=== PATIENT | male | born 1990 | race Caucasian/White ===

== ENCOUNTER 2018-01-02 12:30 | Emergency (ER) | payer OTHER, SELFPAY ==
[2018-01-02 12:33] VITALS: BP 155/74; PULSE 58; RESP 17; TEMP 36.6; O2SAT 99; BMI 34.9
--- NOTE | 2018-01-02 12:52 | ED.VISSUMM ---
- ER Visit Summary Date of Service: 01/02/18 Chief Complaint: Left hand lacerations to 4 of his fingers History of Present Illness: The patient is a 27 M [id number]. Unsure of his last tetanus shot. Patient states he was at work he grabbed a piece of metal and when he tried to pull it lacerated right through his leather glove his left index, long, ring and small fingers. On the palmar aspect. No other injuries. No numbness. Occurred within the last hour. This is a workers comp injury. Physical Examination: Appearing young male. Vital signs stable afebrile. No distress. H EENT exam unremarkable. Neck nontender. Lungs clear to auscultation. Heart regular rhythm no murmur. Soft nontender. Extremities moving all 4. Neurovascular intact. Left hand palmar aspect his left index finger has a significant laceration which will need to be repaired. Involves the skin and subcu tissue it is down to but does not involve the flexor tendon. Left long finger also has a laceration of the repaired. There are superficial lacerations on the left ring and small fingers that do not need to be repaired. They are not actively bleeding. His entire left hand is neurovascularly intact with full flexion extension. Normal touch sensation and cap refill. There does not appear to be any joint, tendon or bony involvement. No obvious foreign bodies. Test Results: None Emergency Department Course and Treatment: Left hand laceration repair of the left index and ring fingers. Injection of lidocaine locally. Once proper anesthetic was obtained the area was explored. Copiously irrigated clean with Shur-Clens and irrigated. Closed using 4-0 Ethilon simple interrupted sutures. Left index finger out of 3-1/2-4 cm laceration that was repaired using 6 simple interrupted 4-0 Ethilon sutures. Proper hemostasis wound closure obtained. Patient tolerated procedure well. Left long finger one half to centimeter laceration which required #2 4-0 ruptured sutures. Treatment Plan: Wound care. Suture removal in 10 days. Watch for any signs of infection. Ice and elevate. Disposition: Discharge Impression: Acute left hand lacerations Laceration repair of left index finger 3.5 cm Laceration repair left long finger 2 cm Tetanus updated Workers comp injury This note was generated with Pano Log[employer] software. It may contain incorrect words, spelling, and punctuation that were not noted in review of the chart prior to signing ED Disposition - Plan for ED Patient: Chief Complaint: Laceration Referrals: Care Physician,No Primary [Primary Care Provider] -
[2018-01-02] MEDS: Diphth,Pertuss(Acell),Tet Vac 0.5 ML Vial IM (13:38)
--- NOTE | 2018-01-02 14:11 | ED.DEP ---
ED Disposition - Plan for ED Patient: Disposition: Home or Assisted Living Chief Complaint: Laceration Instructions: ED Laceration Hand Referrals: [facility] [GROUP OF PHYSICIANS] - 10 Day for suture removal Additional Instructions: Ice elevate hand at night to decrease pain and swelling. Tylenol Motrin for pain. Wash thoroughly and cleaned thoroughly daily until sutures removed. Apply antibiotic ointment daily until all lacerations. Keep covered and clean at work. Suture removal in 10 days. Return if any signs of infection such as redness, pus, fever or streaks.
[2018-01-02 14:40] VITALS: PULSE 56; RESP 15; O2SAT 98
== END 2018-01-02 14:42 | disposition home or self-care (01) ==
PROVIDERS: Emergency Provider Emergency Medicine
DX: S61.211A Laceration without foreign body of left index finger without damage to nail, initial encounter (principal); S61.213A Laceration without foreign body of left middle finger without damage to nail, initial encounter; S61.215A Laceration without foreign body of left ring finger without damage to nail, initial encounter; S61.217A Laceration without foreign body of left little finger without damage to nail, initial encounter; Z23 Encounter for immunization; Z72.0 Tobacco use; W26.8XXA Contact with other sharp object(s), not elsewhere classified, initial encounter; Y93.89 Activity, other specified; Y92.89 Other specified places as the place of occurrence of the external cause; Y99.0 Civilian activity done for income or pay
CPT/HCPCS: 12002; 90471; 90715; 99284

== ENCOUNTER 2018-05-23 07:27 | Inpatient (IN) | payer OTHER, SELFPAY ==
[2018-01-11 08:49] VITALS: BMI 35.4
[2018-05-23 07:28] VITALS: BP 137/75; PULSE 67; RESP 15; TEMP 36.8; O2SAT 99; BMI 33.4
[2018-05-23 07:58] LABS: Absolute Lymphocyte Count 1.38 X10^3/ul (0.83-4.51); Absolute Neutrophil Count 12.7 X10^3/uL (2.0-7.7); Basophil# 0.03 X10^3/uL; Basophil% 0.2 % (0-1); Eosinophil# 0.27 X10^3/uL; Eosinophils% 1.7 % (0-5); Hematocrit 44.5 % (40-54); Hemoglobin 15.1 g/dl (13.0-16.5); Lymphocyte # 1.38 X10^3/ul (4.0); Lymphocyte % 8.7 % (19-41); Mean Corp Hgb Conc 33.9 g/gl (32-36); Mean Corpuscular Hgb 30.1 pg (27.0-32.0); Mean Corpuscular Volume 88.6 fL (80-94); Mean Platelet Vol. 12.1 fl (6.2-12.0); Monocyte# 1.47 X10^3/uL; Monocyte% 9.3 % (0-10); Neutrophil # 12.71 X10^3/uL (2.7-7.7); Neutrophil % 79.9 % (47-70); Platelet Count 185 K/mm3 (150-450); RBC Distribution Width CV 14.1 % (11.6-14.6); RBC Distribution Width SD 45.9 fl (35.1-43.9); Red Blood Count 5.02 M/mm3 (4.6-6.2); White Blood Count 15.9 K/mm3 (4.4-11.0)
[2018-05-23 07:59] LABS: POSITIVE COUNT NO; POSITIVE DIFFERENTIAL NO; POSITIVE MORPHOLOGY NO
--- NOTE | 2018-05-23 08:00 | RAD_ITS ---
STUDY: X-RAY - RIGHT HAND REASON FOR EXAM: Male, 27 years old. Right hand pain and swelling TECHNIQUE: 3 view(s) of the hand. COMPARISON: None. FINDINGS: Normal radiocarpal articulation. Normal distal radioulnar joint. Normal visualized carpal bones. Normal carpal articulations Normal carpometacarpal articulation of the thumb. Normal second through fifth carpometacarpal joints. Normal metacarpi. Normal metacarpophalangeal joint of the thumb. Normal interphalangeal joint of the thumb. Normal proximal and distal phalanges of the thumb. Normal metacarpophalangeal joints of the second through fifth fingers. Normal proximal and distal interphalangeal joints of the second through fifth fingers. Normal phalanges of the second through fifth fingers. Mild dorsal soft tissue swelling RAD/Hand Min 3 Views IMPRESSION: Mild dorsal soft tissue swelling Electronically Signed: Chalo Vo DO at 8:48 EDT Tel , Service support ,
[2018-05-23 08:12] LABS: Erythrocyte Sedimentation Rate 7 mm/hr (0-15)
--- NOTE | 2018-05-23 08:14 | ED.RN ---
paged Dr. Whipple at this time left message
[2018-05-23 08:16] LABS: Anion Gap 2 (5-15); BUN 17 mg/dL (7-18); BUN/Creat Ratio 18.7 RATIO (10-20); Calcium,Total 8.7 mg/dL (8.5-10.1); Chloride 111 mmol/L (98-107); Creatinine, Serum 0.91 mg/dL (0.70-1.30); EST Glomerular Filtration Rate 106 mL/min (>60); Est Glom Filt Rate - Afr Amer 128 mL/min (>60); Estimated Creatinine Clearance 117.97 ml/min; Glucose 103 mg/dL (74-106); Potassium 4.1 mmol/L (3.5-5.1); Sodium Level 141 mmol/L (136-145)
--- NOTE | 2018-05-23 08:27 | ED.VISSUMM ---
- ER Visit Summary Date of Service: 05/23/18 Chief Complaint: Right hand swelling History of Present Illness: The patient is a 27 M with right hand swelling that started overnight last night. He reports dorsal right hand swelling and swelling with pain to the area as well as into his right fourth proximal finger. He did have a puncture wound to the proximal phalanx on the dorsal side a few days ago and also he has an abrasion over the volar surface of the base of the proximal phalanx which occurred days ago. No other injuries or wounds. No history of gout or septic joint. No history of surgery or instrumentation to the hand. No fever or systemic symptoms. Physical Examination: Afebrile and vital signs unremarkable. Right hand shows dorsal swelling, erythema, and tenderness, primarily over the fourth metacarpal. He has a puncture wound over his mid dorsal proximal phalanx of the fourth digit as well as an abrasion on the volar surface of the base of the proximal phalanx of the fourth digit. He is neurovascular intact distally. Test Results: White count 15.9. Other labs pending. X-ray shows soft tissue swelling but is otherwise unremarkable it is pending. Emergency Department Course and Treatment: Patient declined pain medicine. IV lock was placed. He will likely need IV antibiotics and hand consultation. I did page Dr. Mukherjee. White count is elevated. CRP 16.1. ESR normal. Hand x-ray showed dorsal swelling. Nothing else. Patient discussed with Dr. Mukherjee. He would likely need surgery, but we need to try to identify where the infection is coming from. We will start antibiotics to try to cool down the area. He was started on Unasyn and vancomycin. I spoke with the hospitalist who will admit. Treatment Plan: As above Disposition: [facility] Impression: 1. Right hand infection This note was generated with T[employer] dictation software. It may contain incorrect words, spelling, and punctuation that were not noted in review of the chart prior to signing ED Disposition - Plan for ED Patient: Referrals: Care Physician,No Primary [Primary Care Provider] -
--- NOTE | 2018-05-23 09:42 | HP.PCM_ITS ---
History of Present Illness Date of Admission: 05/23/18 Chief Complaint: right hand swelling and pain The patient is a 27 year old M no significant past medical history. He was admitted with a complaint of pain and swelling of his right hand of one days duration. Patient states yesterday he noted that the dorsum of his right hand was mildly swollen so he applied an ice pack and took some Tylenol. This morning he noted that his hand was much more swelling both over the dorsal and volar areas with associated redness. He also had pain with flexion of his last 3 fingers on the right hand. He therefore decided to come into the ED. He denied any trauma to his right hand and stated that he had been clearing some bushes recently and thinks that the brush may have scratched him but he did not think much of it. 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 He has a history of MRSA and states he has had previous cellulitis that was due to MRSA. In the ED, vitals were significant for a pulse rate of 51 and he had elevated white cell count of 15.9. CRP was 16. An x-ray showed only soft tissue swelling. He is admitted to be managed for right hand cellulitis. [] Past Medical History Allergies morphine Allergy (Verified 01/02/18 12:31) Other HALLUCINATIONS Home Medications: Ambulatory Orders Medication Instructions Recorded NK 05/23/18 Surgical History: no surgical history Lives: With Family Smoking Status: Heavy Smoker (>10/day) Tobacco Use: Cigarettes Alcohol: Occasional Drugs: None - *Family History Maternal History Items: No pertinent history Paternal History Items: No pertinent history Review of Systems Constitutional: Denies: Chills, Fever, Malaise, Weakness, Weight Change, Fatigue Eyes: Denies: Blurred vision HEENT: Denies: Head Aches, Sinus Congestion, Sinus Drainage Cardiovascular: Denies: Chest Pain, Palpitations Respiratory: Denies: Cough, Shortness of Breath, Shortness of breath at rest, Shortness of breath upon exertion, Sputum production Gastrointestinal: Denies: Abdominal Pain, Nausea, Vomiting Genitourinary: Denies: Dysuria Musculoskeletal: Reports: Hand Pain - right hand pain, -. Denies: Joint Pain, Joint Tenderness Skin: Denies: Rash, Wounds Neurological: Denies: Numbness, Tingling, Focal weakness Psychiatric: Denies: Anxiety, Depression, Homicidal Ideations, Suicidal Ideations Hematologic/ Lymphatic: Denies: Easy Bruising, Easy Bleeding VTE Information - Inpt Only VTE Present on Admission: No VTE Pharm Prophylaxis ordered?: Yes - Physical Exam General: Alert, Oriented x3, Cooperative, No apparent distress HEENT: Atraumatic, PERRLA, EOMI, Normocephalic Oral: Moist Mucosa Neck: Supple, No JVD, Negative Carotid Bruits Lungs: Clear to auscultation, Normal air movement, No rhonchi, No wheeze, No rales Cardiovascular: Regular rate, Regular Rhythm, Normal S1, Normal S2, No murmurs Abdomen: Bowel Sounds Present, Soft, Non Tender, Non-Distended, No Hepato- splenomegaly Extremities: No clubbing, No cyanosis, No edema, Capillary Refill Less than 3 Seconds Skin: - - healing superficial puncture herbert on the dorsum of right second and fifth fingers Musculoskeletal: - - swelling, erythema and differential warmth over dorsum of right hand and volar aspect of right hand. Has pain with flexion of right middle, 4th and little finger Lymphatic: No Cervical, Supraclavicular, or Inguinal Adenopathy Neurological: Cranial nerves II-XII grossly intact, Neuro grossly intact, Motor Exam 5/5 strength throughout Psych/Mental Status: Normal Affect, Appropriate, Alert and oriented to time, place, person, mood and affect Vital Signs Temp Pulse Resp BP Pulse Ox 98.3 F 67 15 137/75 H 99 05/23/18 07:28 05/23/18 07:28 05/23/18 07:28 05/23/18 07:28 05/23/18 07:28 Oxygen Delivery Method Room Air Weight: 220 lb Body Mass Index (BMI) 33.4 Laboratory Tests Past 24 Hrs 05/23/18 05/23/18 07:50 07:50 WBC 15.9 H RBC 5.02 Hgb 15.1 Hct 44.5 MCV 88.6 MCH 30.1 MCHC 33.9 RDW 14.1 RDW Differential 45.9 H Plt Count 185 MPV 12.1 H Immature Gran % (Auto) 0.200 Neut % (Auto) 79.9 H Lymph % (Auto) 8.7 L [place] % (Auto) 9.3 Eos % (Auto) 1.7 Baso % (Auto) 0.2 Absolute Neuts (auto) 12.7 H Absolute Lymphs (auto) 1.38 Total Counted Not Reportable ESR 7 Sodium 141 Potassium 4.1 Chloride 111 H Carbon Dioxide 28.0 Anion Gap 2 L BUN 17 Creatinine 0.91 Estim Creat Clear Calc 117.97 Est GFR (MDRD) Af Amer 128 Est GFR (MDRD) Non-Af 106 BUN/Creatinine Ratio 18.7 Glucose 103 Calcium 8.7 C-React Prot Ext Range 16.10 H Diagnostic Data Hand X-Ray 05/23/18 08:00 IMPRESSION: Mild dorsal soft tissue swelling Electronically Signed: Chalo Vo DO at 8:48 EDT Tel , Service support , Assessment/Plan 70-year-old male admitted with a complaint of swelling of the right hand. 1. Cellulitis of the right hand * right hand area of swelling demarcated with body marker * has elevated wc of 15.9 * admit to MEd surg * blood cultures drawn * was started on IV vancomycin and unasyn in ED; light of history of MRSA, will stop Unasyn and continue with IV vancomycin. * Plastic surgery consulted. * 2. History of nicotine dependence: Smokes at least 1 pack daily. Counseled to quit. Nicotine patch 21 mg daily. DVT prophylaxis: lovenox Code Visit Inpatient E&M: 48537 Subs Hosp L2
[2018-05-23 10:03] VITALS: BP 130/63; PULSE 51; TEMP 36.7; O2SAT 99
[2018-05-23 10:48] VITALS: BMI 32.3
--- NOTE | 2018-05-23 14:48 | PCM.RX.CS ---
Consult Pharmacy has been consulted to manage selected antiobiotic: Vancomycin Type of Consult: New start Suspected Infection: Skin/Soft tissue Prior Doses of Antibiotics Received/Current Regimen: Received 1500mg IV x1 in E.D. today at 11:05 Labs: Sodium 141 mmol/L (136-145) 05/23/18 07:50 Potassium 4.1 mmol/L (3.5-5.1) 05/23/18 07:50 Chloride 111 mmol/L (98-107) H 05/23/18 07:50 Carbon Dioxide 28.0 mmol/L (21.0-32.0) 05/23/18 07:50 Anion Gap 2 (5-15) L 05/23/18 07:50 BUN 17 mg/dL (7-18) 05/23/18 07:50 Creatinine 0.91 mg/dL (0.70-1.30) 05/23/18 07:50 Est GFR (MDRD) Af Amer 128 mL/min (>60) 05/23/18 07:50 Est GFR (MDRD) Non-Af 106 mL/min (>60) 05/23/18 07:50 BUN/Creatinine Ratio 18.7 RATIO (10-20) 05/23/18 07:50 Glucose 103 mg/dL (74-106) 05/23/18 07:50 Weight used for dosin.4 kg Estimated Creatinine Clearance: 118 ml/min Goal Trough: 15-20 mcg/mL Pharmacy Plan for Drug Dosing: Continue with 1250mg IV q8h. Obtain a trough before the 4th total dose. Pharmacy Service will continue to monitor and adjust dosing as required. Follow-Up Labs: Trough Vancomycin Labs to be done on [date and time ordered]: 05/24/18 10:30
[2018-05-23 18:15] VITALS: BP 143/62; PULSE 56; RESP 16; TEMP 37; O2SAT 100
[2018-05-23] MEDS: 0.9% NaCl Peripheral Flush Adult/Peds IV ×2 (18:20→21:31)
--- NOTE | 2018-05-23 19:28 | CON.PCM_ITS ---
Reason for Consult Date of Consultation: 05/23/18 Reason for Consultation: Puncture wound infection dorsal aspect right ring finger at proximal phalanx extending onto dorsum of hand. REFERRING PHYSICIAN: Dr. Damon. TIMBER GRADER: Dr. Mukherjee. History of Present Illness: The patient is a 27 year old M presented to the ED today after noticing yesterday that his right hand was developing increasing redness and pain and swelling. He is right hand dominant. He denies any trauma. 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 When he first noticed the redness and swelling, he applied and ice pack and took some Tylenol. With his worsening symptomatology, he presented to the ED. An xray was done which showed soft tissue swelling and no bony abnormalities and no foreign body. His WBC was 15.9. It was noted he had a puncture wound on the dorsal aspect right ring finger at the proximal phalanx. The redness and swelling and pain involve mostly the dorsum of his hand and the proximal aspects of his fingers. He states the right ring finger hurts the most. He doesn't know how he developed the puncture wound on his right ring finger. He states he has had a previous history of MRSA. He was admitted for hand elevation and IV antibiotics. He was given Vancomycin and Unasyn in the ED. I was asked to evaluate this patient for surgical options for treatment. Past Medical History Past Medical History (Chronic Problems): Chronic Problems Smoker (Chronic) Personal history of Methicillin resistant Staphylococcus aureus infection (Chronic) Allergies morphine Allergy (Verified 05/23/18 10:48) hallucinations Current Medications Acetaminophen (Tylenol) 650 mg PO Q6H PRN Enoxaparin Sodium (Lovenox) 40 mg SC DAILY@1000 VINAY Vancomycin IV Pharmacy to Dose (1 ea/ Sodium Chloride) 500 mls @ 250 mls/hr IV X1 PRN; Protocol Vancomycin HCl 1,250 mg/ (Sodium Chloride) 275 mls @ 167 mls/hr IV Q8H VINAY Magnesium Hydroxide (Milk Of Magnesia) 30 ml PO DAILY PRN Home Medications: Ambulatory Orders Medication Instructions Recorded NK 05/23/18 Surgical History: no surgical history Psychiatric History: No pertinent psych hx Lives: With Family Smoking Status: Current every day smoker Tobacco Use: Cigarettes Alcohol: Occasional Drugs: None - *Family History Maternal History Items: No pertinent history Paternal History Items: No pertinent history Review of Systems Comment: Constitutional: Denies: Chills, Fever, Malaise, Weakness, Weight Change, Fatigue. Eyes: Denies: Blurred vision. HEENT: Denies: Head Aches, Sinus Congestion, Sinus Drainage. Cardiovascular: Denies: Chest Pain, Palpitations. Respiratory: Denies: Cough, Shortness of Breath, Shortness of breath at rest, Shortness of breath upon exertion, Sputum production. Gastrointestinal: Denies: Abdominal Pain, Nausea, Vomiting. Genitourinary: Denies: Dysuria. Musculoskeletal: Reports: Hand Pain - right hand pain, -. Denies: Joint Pain, Joint Tenderness. Skin: Denies: Rash, Wounds. Neurological: Denies: Numbness, Tingling, Focal weakness. Psychiatric: Denies: Anxiety, Depression, Homicidal Ideations, Suicidal Ideations. Hematologic/ Lymphatic: Denies: Easy Bruising, Easy Bleeding - Physical Exam General: Alert, Oriented x3, Cooperative. HEENT: PERRLA, EOMI. Oral: Moist Mucosa Neck: Supple, nontender. No cervical adenopathy. Lungs: Clear to auscultation. Cardiovascular: Regular rate, Regular Rhythm. Abdomen: Soft, Non-Distended. Extremities: No clubbing, No cyanosis. There is increased redness and swelling right hand mostly on the dorsum. He has a puncture wound on the dorsal aspect right ring finger at the proximal phalanx. No fluctuance. No purulent drainage. Tenderness to palpation. Redness and swelling extends on the dorsum of the hand down to the wrist and onto the dorsal proximal aspect of the small finger, long finger, and index finger. The volar surface is soft and nontender. He recently had lacerations on the volar surface of his fingers right hand that were sutured closed, and they appear healed at this time and nontender. No clinical evidence of flexor tenosynovitis. No clinical evidence of extensor tenosynovitis. Patient can make a fist with some discomfort and there is some limitation secondary to pain and swelling. Flexion and extension are intact. There is some discomfort with extension against resistance to the ring finger. Fingers are warm with good capillary refill. Radial pulses are palpable. No axillary adenopathy. Patient is right hand dominant. He has a healing nontender abrasion on the volar proximal aspect right ring finger. Lymphatic: No Cervical, Supraclavicular, or Inguinal Adenopathy Neurological: Cranial nerves II-XII grossly intact. Psych/Mental Status: Normal Affect, Appropriate. Vital Signs Temp Pulse Resp BP Pulse Ox 98.6 F 56 L 16 143/62 H 100 05/23/18 18:15 05/23/18 18:15 05/23/18 18:15 05/23/18 18:15 05/23/18 18:15 Oxygen Delivery Method Room Air Weight: 212 lb 8.41 oz Body Mass Index (BMI) 32.3 Intake and Output for Last 24 Hours 05/21/18 05/22/18 05/23/18 23:59 23:59 23:59 Intake Total 750 / 750 Balance 750 / 750 Laboratory Tests Past 24 Hrs 05/23/18 05/23/18 07:50 07:50 WBC 15.9 H RBC 5.02 Hgb 15.1 Hct 44.5 MCV 88.6 MCH 30.1 MCHC 33.9 RDW 14.1 RDW Differential 45.9 H Plt Count 185 MPV 12.1 H Immature Gran % (Auto) 0.200 Neut % (Auto) 79.9 H Lymph % (Auto) 8.7 L Mayes % (Auto) 9.3 Eos % (Auto) 1.7 Baso % (Auto) 0.2 Absolute Neuts (auto) 12.7 H Absolute Lymphs (auto) 1.38 Total Counted Not Reportable ESR 7 Sodium 141 Potassium 4.1 Chloride 111 H Carbon Dioxide 28.0 Anion Gap 2 L BUN 17 Creatinine 0.91 Estim Creat Clear Calc 117.97 Est GFR (MDRD) Af Amer 128 Est GFR (MDRD) Non-Af 106 BUN/Creatinine Ratio 18.7 Glucose 103 Calcium 8.7 C-React Prot Ext Range 16.10 H Diagnostic Data Hand X-Ray 05/23/18 08:00 IMPRESSION: Mild dorsal soft tissue swelling Electronically Signed: Chalo Vo DO at 8:48 EDT Tel , Service support , Assessment/Plan All Active Problems Necrotizing soft tissue infection (Acute) Abscess of right hand including fingers (Acute) Suppurative tenosynovitis (Acute) Tenosynovitis of right hand (Acute) Puncture wound of right ring finger without foreign body without damage to nail (Acute) Cellulitis of right hand (Acute) 1. Puncture wound infection dorsal proximal aspect right ring finger at proximal phalanx with extension onto dorsum of hand and proximal aspects small finger, long finger, and index finger with associated cellulitis. 2. Early tenosynovitis. 3. History of MRSA. 4. Smoker. Xray reviewed. There is soft tissue swelling. There are no bony abnormalities and no foreign bodies. Patient has a significant cellulitis right hand. He is right hand dominant. He can bend his fingers and make a fist. He is currently on Vancomycin and will continue them. At the time of surgery, will add Zosyn. He will elevate his right hand to minimize the swelling. He will need operative intervention. With the degree of cellulitis, he has an early extensor tenosynovitis. I don't want to wait too long and have the tenosynovitis become suppurative. I would like to see how well he responds to IV antibiotics for 24 hours to see how much of the redness improves. I know I will have to open up the puncture wound area on the ring finger. May have to extend the incision proximally and distally in a zig zag fashion for exposure of the infection. Depending on how much of the redness improves, I may have to make incisions on the the small finger and long finger and index finger on the dorsal proximal aspect and the dorsum of the hand. Will send tissue to Pathology and to Microbiology for culture. A positive culture will necessitate antibiotic therapy. Will leave the wound open after surgery and pack with Silver dressings daily. Will encourage range of motion exercises to minimize stiffness. Anticipate increased metabolic demands from the infection and from the surgical wounds. Will check a Prealbumin. Will encourage nutritional supplementation with protein to help the healing process. Will plan on the surgery tomorrow unless there is dramatic improvement at which time I may wait another day before deciding on surgery. After surgery, if there is a plateau in the healing process, may proceed in a delayed fashion with skin grafting. Patient was informed of the risks and complications of the procedure including alternatives to surgery. These were discussed with the patient personally. Patient voices understanding and wishes to proceed. Encouraged patient to stop smoking as it may have deleterious effects on wound healing. Code Visit Inpatient E&M: 45149 Init Hosp L2 - ICD-10 - S61.234A, L03.113, M65.9, Z86.14, F17.200
[2018-05-23] MEDS: Acetaminophen 325 MG Tablet 650 MG PO (20:25)
[2018-05-23 20:26] VITALS: BP 133/67; PULSE 57; RESP 16; TEMP 36.8; O2SAT 100
--- NOTE | 2018-05-23 21:39 | EKG12_ITS ---
Test Reason : PRE-OP Blood Pressure : / mmHG Vent. Rate : 074 BPM Atrial Rate : 074 BPM P-R Int : 146 ms QRS Dur : 098 ms QT Int : 372 ms P-R-T Axes : 037 -12 039 degrees QTc Int : 412 ms Normal sinus rhythm Normal ECG No previous ECGs available Confirmed by LISA MCLAUGHLIN, MARIPOSA ([id number]), newspaper copy editor RAFAL BECKETT ([id number]) on 06/05/2018 5:26:08 PM Referred By: CRISS Confirmed By:MARIPOSA GONZALEZ MD
[2018-05-24] VITALS (11 sets, daily range): BP systolic 108–131; BP diastolic 50–73; PULSE 54–70; RESP 16–18; TEMP 36.6–37.2; O2SAT 95–100; BMI 32.2
[2018-05-24] MEDS: 0.9% NaCl Peripheral Flush Adult/Peds IV (02:55)
[2018-05-24 07:55] LABS: Absolute Lymphocyte Count 1.77 X10^3/ul (0.83-4.51); Absolute Neutrophil Count 9.4 X10^3/uL (2.0-7.7); Basophil# 0.03 X10^3/uL; Basophil% 0.2 % (0-1); Eosinophils% 2.3 % (0-5); Hematocrit 43.9 % (40-54); Lymphocyte # 1.77 X10^3/ul (4.0); Lymphocyte % 13.9 % (19-41); Mean Corp Hgb Conc 34.2 g/gl (32-36); Mean Corpuscular Hgb 29.7 pg (27.0-32.0); Mean Corpuscular Volume 86.9 fL (80-94); Mean Platelet Vol. 12.3 fl (6.2-12.0); Monocyte# 1.25 X10^3/uL; Monocyte% 9.8 % (0-10); Neutrophil % 73.6 % (47-70); Platelet Count 168 K/mm3 (150-450); RBC Distribution Width CV 14.1 % (11.6-14.6); RBC Distribution Width SD 44.8 fl (35.1-43.9); Red Blood Count 5.05 M/mm3 (4.6-6.2); White Blood Count 12.8 K/mm3 (4.4-11.0)
[2018-05-24 07:56] LABS: Anion Gap 6 (5-15); BUN 13 mg/dL (7-18); BUN/Creat Ratio 15.7 RATIO (10-20); Calcium,Total 8.3 mg/dL (8.5-10.1); Chloride 110 mmol/L (98-107); Creatinine, Serum 0.83 mg/dL (0.70-1.30); EST Glomerular Filtration Rate 118 mL/min (>60); Est Glom Filt Rate - Afr Amer 143 mL/min (>60); Estimated Creatinine Clearance 129.34 ml/min; Glucose 111 mg/dL (74-106); Potassium 4.3 mmol/L (3.5-5.1); Sodium Level 142 mmol/L (136-145)
[2018-05-24 07:58] LABS: POSITIVE COUNT NO; POSITIVE DIFFERENTIAL NO; POSITIVE MORPHOLOGY NO
--- NOTE | 2018-05-24 10:18 | PCM.PN.HOSP ---
Subjective: Patient seen and examined. Swelling in his right hand is much better and pain is improved. He is able to move his fingers better now. Labs and vitals reviewed. He is going for surgery by Dr. Mukherjee at 1 PM today. Vitals/I&O's: Vital Signs Temp Pulse Resp BP Pulse Ox 98.4 F 58 L 18 131/73 H 99 05/24/18 07:52 05/24/18 07:52 05/24/18 07:52 05/24/18 07:52 05/24/18 07:52 Oxygen Delivery Method Room Air Weight: 212 lb 8.41 oz Body Mass Index (BMI) 32.3 Intake and Output for Last 24 Hours 05/22/18 05/23/18 05/24/18 23:59 23:59 23:59 Intake Total 750 / 750 1897 Balance 750 / 750 1897 General: Alert, Oriented x3, Cooperative, No apparent distress HEENT: Atraumatic, PERRLA, EOMI, Normocephalic Oral: Moist Mucosa Neck: Supple, No JVD, Negative Carotid Bruits Lungs: Clear to auscultation, Normal air movement, No rhonchi, No wheeze, No rales Cardiovascular: Regular rate, Regular Rhythm, Normal S1, Normal S2, No murmurs Abdomen: Bowel Sounds Present, Soft, Non Tender, Non-Distended, No Hepato-splenomegaly Extremities: No clubbing, No cyanosis, No edema, Capillary Refill Less than 3 Seconds Skin: - - healing superficial puncture herbert on the dorsum of right second and fifth fingers Musculoskeletal: - - swelling, redness and differential warmth over dorsum and plantar area of right hand is much better. Able to move fingers much better. Lymphatic: No Cervical, Supraclavicular, or Inguinal Adenopathy Neurological: Cranial nerves II-XII grossly intact, Neuro grossly intact, Motor Exam 5/5 strength throughout Psych/Mental Status: Normal Affect, Appropriate, Alert and oriented to time, place, person, mood and affect Laboratory Results 05/24/18 07:30: WBC 12.8 H, RBC 5.05, Hgb 15.0, Hct 43.9, MCV 86.9, MCH 29.7, MCHC 34.2, RDW 14.1, RDW Differential 44.8 H, Plt Count 168, MPV 12.3 H, Immature Gran % (Auto) 0.200, Neut % (Auto) 73.6 H, Lymph % (Auto) 13.9 L, [place] % (Auto) 9.8, Eos % (Auto) 2.3, Baso % (Auto) 0.2, Absolute Neuts (auto) 9.4 H, Absolute Lymphs (auto) 1.77, Total Counted Not Reportable 05/24/18 07:30: Sodium 142, Potassium 4.3, Chloride 110 H, Carbon Dioxide 26.0, Anion Gap 6, BUN 13, Creatinine 0.83, Estim Creat Clear Calc 129.34, Est GFR (MDRD) Af Amer 143, Est GFR (MDRD) Non-Af 118, BUN/Creatinine Ratio 15.7, Glucose 111 H, Calcium 8.3 L Diagnostic Data Hand X-Ray 05/23/18 08:00 IMPRESSION: Mild dorsal soft tissue swelling Electronically Signed: Chalo Vo DO at 8:48 EDT Tel , Service support , Current Medications Acetaminophen (Tylenol) 650 mg PO Q6H PRN PRN PRN Reason: Mild Pain (1-3)/Temp > 100.7 F Last Admin: 05/23/18 20:25 Dose: 650 mg Enoxaparin Sodium (Lovenox) 40 mg SC DAILY@1000 VINAY Last Admin: 05/24/18 07:48 Dose: Not Given Vancomycin IV Pharmacy to Dose (1 ea/ Sodium Chloride) 500 mls @ 250 mls/hr IV X1 PRN; Protocol PRN Reason: Rx to Dose Vancomycin HCl 1,250 mg/ (Sodium Chloride) 275 mls @ 167 mls/hr IV Q8H VINAY Last Admin: 05/24/18 02:55 Dose: 167 mls/hr Piperacillin Sod/Tazobactam (Sod 3.375 gm/ Sodium Chloride) 50 mls @ 100 mls/hr IV X1 ONE Stop: 05/24/18 11:29 Magnesium Hydroxide (Milk Of Magnesia) 30 ml PO DAILY PRN PRN PRN Reason: Constipation Sodium Chloride () 5 - 15 ml IV UD PRN PRN Reason: SALINE FLUSH Last Admin: 05/24/18 02:55 Dose: 10 ml Medical Necessity - Tobacco Use Smoking Status: Current every day smoker Tobacco Use: Cigarettes Assessment/Plan 70-year-old male admitted with a complaint of swelling of the right hand. 1. Cellulitis of the right hand swelling over right hand has improved significantly wbc down to 12.8 blood cultures pending; has a history of MRSA on IV vancomycin due for surgery with plastic surgery today ESR was 7 and CRP was 16.10 2. History of nicotine dependence: Smokes at least 1 pack daily. Counseled to quit. Nicotine patch 21 mg daily. DVT prophylaxis: lovenox Code Visit Inpatient E&M: 19180 Subs Hosp L2
--- NOTE | 2018-05-24 10:25 | PN_ITS ---
Subjective: Patient seen and examined. Swelling in his right hand is much better and pain is improved. He is able to move his fingers better now. Labs and vitals reviewed. He is going for surgery by Dr. Mukherjee at 1 PM today. Vitals/I&O's: Vital Signs Temp Pulse Resp BP Pulse Ox 98.4 F 58 L 18 131/73 H 99 05/24/18 07:52 05/24/18 07:52 05/24/18 07:52 05/24/18 07:52 05/24/18 07:52 Oxygen Delivery Method Room Air Weight: 212 lb 8.41 oz Body Mass Index (BMI) 32.3 Intake and Output for Last 24 Hours 05/22/18 05/23/18 05/24/18 23:59 23:59 23:59 Intake Total 750 / 750 1897 Balance 750 / 750 1897 General: Alert, Oriented x3, Cooperative, No apparent distress HEENT: Atraumatic, PERRLA, EOMI, Normocephalic Oral: Moist Mucosa Neck: Supple, No JVD, Negative Carotid Bruits Lungs: Clear to auscultation, Normal air movement, No rhonchi, No wheeze, No rales Cardiovascular: Regular rate, Regular Rhythm, Normal S1, Normal S2, No murmurs Abdomen: Bowel Sounds Present, Soft, Non Tender, Non-Distended, No Hepato- splenomegaly Extremities: No clubbing, No cyanosis, No edema, Capillary Refill Less than 3 Seconds Skin: - - healing superficial puncture herbert on the dorsum of right second and fifth fingers Musculoskeletal: - - swelling, redness and differential warmth over dorsum and plantar area of right hand is much better. Able to move fingers much better. Lymphatic: No Cervical, Supraclavicular, or Inguinal Adenopathy Neurological: Cranial nerves II-XII grossly intact, Neuro grossly intact, Motor Exam 5/5 strength throughout Psych/Mental Status: Normal Affect, Appropriate, Alert and oriented to time, place, person, mood and affect Laboratory Results 05/24/18 07:30: WBC 12.8 H, RBC 5.05, Hgb 15.0, Hct 43.9, MCV 86.9, MCH 29.7, MCHC 34.2, RDW 14.1, RDW Differential 44.8 H, Plt Count 168, MPV 12.3 H, Immature Gran % (Auto) 0.200, Neut % (Auto) 73.6 H, Lymph % (Auto) 13.9 L, [place] % (Auto) 9.8, Eos % (Auto) 2.3, Baso % (Auto) 0.2, Absolute Neuts (auto) 9.4 H, Absolute Lymphs (auto) 1.77, Total Counted Not Reportable 05/24/18 07:30: Sodium 142, Potassium 4.3, Chloride 110 H, Carbon Dioxide 26.0, Anion Gap 6, BUN 13, Creatinine 0.83, Estim Creat Clear Calc 129.34, Est GFR (MDRD) Af Amer 143, Est GFR (MDRD) Non-Af 118, BUN/Creatinine Ratio 15.7, Glucose 111 H, Calcium 8.3 L Diagnostic Data Hand X-Ray 05/23/18 08:00 IMPRESSION: Mild dorsal soft tissue swelling Electronically Signed: Chalo Vo DO at 8:48 EDT Tel , Service support , Current Medications Acetaminophen (Tylenol) 650 mg PO Q6H PRN PRN PRN Reason: Mild Pain (1-3)/Temp > 100.7 F Last Admin: 05/23/18 20:25 Dose: 650 mg Enoxaparin Sodium (Lovenox) 40 mg SC DAILY@1000 VINAY Last Admin: 05/24/18 07:48 Dose: Not Given Vancomycin IV Pharmacy to Dose (1 ea/ Sodium Chloride) 500 mls @ 250 mls/hr IV X1 PRN; Protocol PRN Reason: Rx to Dose Vancomycin HCl 1,250 mg/ (Sodium Chloride) 275 mls @ 167 mls/hr IV Q8H VINAY Last Admin: 05/24/18 02:55 Dose: 167 mls/hr Piperacillin Sod/Tazobactam (Sod 3.375 gm/ Sodium Chloride) 50 mls @ 100 mls/hr IV X1 ONE Stop: 05/24/18 11:29 Magnesium Hydroxide (Milk Of Magnesia) 30 ml PO DAILY PRN PRN PRN Reason: Constipation Sodium Chloride () 5 - 15 ml IV UD PRN PRN Reason: SALINE FLUSH Last Admin: 05/24/18 02:55 Dose: 10 ml Medical Necessity - Tobacco Use Smoking Status: Current every day smoker Tobacco Use: Cigarettes Assessment/Plan 70-year-old male admitted with a complaint of swelling of the right hand. 1. Cellulitis of the right hand * swelling over right hand has improved significantly * wbc down to 12.8 * blood cultures pending; has a history of MRSA * on IV vancomycin * due for surgery with plastic surgery today * ESR was 7 and CRP was 16.10 * 2. History of nicotine dependence: Smokes at least 1 pack daily. Counseled to quit. Nicotine patch 21 mg daily. DVT prophylaxis: lovenox Code Visit Inpatient E&M: 64874 Subs Hosp L2
[2018-05-24 11:07] LABS: Vancomycin, Trough Level 8.8 ug/mL (5.0-15.0)
--- NOTE | 2018-05-24 12:30 | LES_PTH ---
PATIENT: AMIRA DOAN V LOC: MS3 U#:[id number] AGE/SX: 27/M ROOM: MS321 RE05/23/[address]: Dr. Ghulam Rodriguez MD : 1990 BED: 1 DIS: 05/28/2018 SPEC #: [id number] RECD: 05/24/18 16:35 STATUS: KARLA REEstephanie #: [id number] SHADI: 05/24/18 12:[address]: Nnamdi Mukherjee DEPT: SURGICAL PATHOLOGY RECD BY: Remi Cintron ENTERED: 05/25/18 09:28 SP TYPE: Lesion OTHR DR: MD Dr. Letitia Milton MD No Primary Care Phys Tissues: Skin of finger, NOS Procedures: PAS Fungus (control) Special Stain Group I Surgery Specimen Level III AFB Stain (control) HEADER OPERATION: Surgical preparation of dorsal aspect right ring finger PRE-OP DIAGNOSIS: Cellulitis right hand TISSUE SUBMITTED: Right ring finger debrided soft tissue MICROSCOPIC DIAGNOSIS Right ring finger debrided soft tissue: Fragments of fibroadipose tissue with acute and chronic inflammation and abscess formation. Special stains for acid fast bacilli and fungi are negative for organisms; matched controls are appropriate. SJ:jayna 05/26/18 MICROSCOPIC DESCRIPTION Slides are reviewed. GROSS DESCRIPTION Received in fixative is one container labeled with the patient's name and designated right ring finger debrided soft tissue. The specimen consists of multiple irregular fragments of smith skin and soft tissue that in aggregate measure 2.5 x 1 x 1 cm. The specimen is totally submitted in two cassettes. / CE:jayna 05/25/18 TC:2 CPT: 42641, 12691 x2
--- NOTE | 2018-05-24 13:04 | PCA ---
pt off floor
--- NOTE | 2018-05-24 13:13 | PCM.RX.CS ---
Consult Pharmacy has been consulted to manage selected antiobiotic: Vancomycin Type of Consult: Follow-up Suspected Infection: Skin/Soft tissue Prior Doses of Antibiotics Received/Current Regimen: Currently on 1500mg iv q8h. Labs: Sodium 142 mmol/L (136-145) 05/24/18 07:30 Potassium 4.3 mmol/L (3.5-5.1) 05/24/18 07:30 Chloride 110 mmol/L (98-107) H 05/24/18 07:30 Carbon Dioxide 26.0 mmol/L (21.0-32.0) 05/24/18 07:30 Anion Gap 6 (5-15) 05/24/18 07:30 BUN 13 mg/dL (7-18) 05/24/18 07:30 Creatinine 0.83 mg/dL (0.70-1.30) 05/24/18 07:30 Est GFR (MDRD) Af Amer 143 mL/min (>60) 05/24/18 07:30 Est GFR (MDRD) Non-Af 118 mL/min (>60) 05/24/18 07:30 BUN/Creatinine Ratio 15.7 RATIO (10-20) 05/24/18 07:30 Glucose 111 mg/dL (74-106) H 05/24/18 07:30 Vancomycin Trough 8.8 ug/mL (5.0-15.0) 05/24/18 10:15 Weight used for dosin.4 kg Estimated Creatinine Clearance: ~129ml/min Goal Trough: 15-20 mcg/mL Pharmacy Plan for Drug Dosing: Trough level of 4.3.19 in AM reported as 8.8 with goal range of 15-20 mcg/ml. Renal function of Cr 0.83 and CrCl ~129ml/min reviewed. Will increase dose to 2000mg iv q8h and repeat trough has been ordered for 4.4.19 before 4th dose of this new regimen. Pharmacy Service will continue to monitor and adjust dosing as required. Follow-Up Labs: Trough Vancomycin - 4.4.19 @1830 before 1900 dose
--- NOTE | 2018-05-24 14:36 | PCM.OPRPT ---
Report of Operation Date of Procedure: 05/24/18 Pre-Operative Diagnosis: 1. Puncture wound infection dorsal proximal aspect right ring finger at proximal phalanx with extension onto dorsum of hand and proximal aspects small finger, long finger, and index finger with associated cellulitis. 2. Early tenosynovitis. 3. History of MRSA. 4. Smoker. Post-Operative Diagnosis: 1. 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 2. History of MRSA. 3. Extensor suppurative tenosynovitis dorsum right hand at MP joint ring finger. 4. Smoker. Surgery/Procedure Performed:: 1. Surgical preparation dorsal aspect right ring finger at proximal aspect and dorsum right hand with incision and drainage and excisional debridement puncture wound necrotizing abscess. 2. Radical excision suppurative bursa and synovia extensor tendon sheath to ring finger at wrist with extension onto dorsum of hand with extensor suppurative tenosynovectomy. 3. Incision and drainage extensor tendon sheath dorsum right hand to ring finger for suppurative tenosynovitis. Description of Surgical Findings:: The patient is a 27 year old M presented to the ED today after noticing yesterday that his right hand was developing increasing redness and pain and swelling. He is right hand dominant. He denies any trauma. 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 When he first noticed the redness and swelling, he applied and ice pack and took some Tylenol. With his worsening symptomatology, he presented to the ED. An xray was done which showed soft tissue swelling and no bony abnormalities and no foreign body. His WBC was 15.9. It was noted he had a puncture wound on the dorsal aspect right ring finger at the proximal phalanx. The redness and swelling and pain involve mostly the dorsum of his hand and the proximal aspects of his fingers. He states the right ring finger hurts the most. He doesn't know how he developed the puncture wound on his right ring finger. He states he has had a previous history of MRSA. He was admitted for hand elevation and IV antibiotics. He was given Vancomycin and Unasyn in the ED. I was asked to evaluate this patient for surgical options for treatment. Patient was informed of the risks and complications of the procedure including alternatives to surgery. These were discussed with the patient personally. Patient voices understanding and wishes to proceed. Some of the risks and complications that were discussed included but were not inclusive of failure to diagnose including symptom relief, pain, infection, numbness, stiffness, loss of digit, RSD (CRPS), need for further surgery, contracture, and wound healing problems. Encouraged patient to stop smoking as it may have deleterious effects on wound healing. Total tourniquet time - 36 minutes. Size of defect dorsal aspect right ring finger at proximal phalanx - 1.5 x 1.5 cm. Size of defect dorsal aspect right ring finger at MP joint - 1.5 x 1.5 cm. Size of defect dorsum right hand, ulnar - 4 x 1.5 cm. Size of defect dorsum right hand, radial - 3 x 1.5 cm. sorter lumber straightener: None Type of Anesthesia:: General Specimen's removed: 1. Necrotizing wound abscess dorsum right hand with extension to ring finger tissue to Pathology and Microbiology. 2. MRSA Wound DNA by PCR. Drains: None. Estimated Blood Loss (mL): 25 ml. Description of Procedure: Patient was taken to OR in supine position and was placed under general anesthesia. The right hand and forearm areas were prepped and draped in the usual fashion. SCD's were placed for DVT prophylaxis. Perioperative antibiotics were given intravenously. Longitudinal markings were made on the dorsum of the right hand at the level of the ring finger and at the level of the index finger. I extended the ring finger markings in a zig zag fashion distally over the MP joint onto the proximal phalanx. A circular marking was made around the puncture wound on the dorsal aspect right ring finger. Using xylocaine with epinephrine, these markings were infiltrated. After waiting 5 minutes for the anesthetic to take effect, I made a circular incision around the puncture wound down into the subcutaneous tissue. A lot of milky fluid was seen. A lot of fat necrosis was seen. I dissected down to the extensor tendon on the proximal phalanx. Some of the pus extended to the tendon. With the amount of fat necrosis present in the subcutaneous tissue, it was excised and debrided as well as some overlying skin to help make the wound care less painful and easier to pack. I extended the incision proximally in a zig zag fashion down through the subcutaneous tissue. A lot of indurated scar tissue was present. At this time, a lot of bleeding was encountered secondary to the scar tissue. I then elevated the right hand and placed a towel around the hand for some compression. I didn't want to use an Esmarch bandage because of the infection. The tourniquet was elevated to 250 mmHg. The indurated scar tissue was incised, and copious amounts of pus was expressed under pressure. The pus was pervasive and surrounded the extensor tendon in the area of the MP joint. No extension to the joint was seen. Thickened suppurative synovitis was present with thickened synovium throughout the tendon extending proximally. Extensive excisional debridement of the thickened capsular scar tissue surrounding the pus pocket and extensive excisional debridement was done with an extensor suppurative tenosynovectomy. I then made longitudinal incisions on the dorsum both at the level of the ring finger and the index finger down into the subcutaneous tissue. Extensive edema was seen with milky fluid present. A lot of fat necrosis was seen. The suppurative tenosynovitis extended on the ring finger extensor down toward the wrist. The 4th compartment was irrigated with saline copiously. The other extensor tendons to the small finger and long finger and index finger appeared edematous with some inflammation and some induration. No suppurative process seen on those tendons. it appeared to be more of an early tenosynovitis process at this time. I also dissected down to the dorsal interosseous muscles. The muscles appeared soft and viable with no evidence of a compartment syndrome. For the dissection on the radial incision by the index finger, I carefully located superficial sensory branches of the radial nerve and preserved them. A lot of fat necrosis wa seen. In both the ulnar wound and radial wound on the dorsum of the hand, the extensive fat necrosis was excised and debrided. All of the wounds were copiously irrigated with saline. The tourniquet was released after 36 minutes. Hemostasis was obtained with electrocautery. I then approximated the points of the zig and zag portion of the incision at the level of the ring finger with 4-0 Prolene vertical mattress sutures. The wounds were then dressed with Mepitel nonadherent dressing followed by 4x4 gauze with Betadine followed by dry Kerlix gauze and a compression CHERELLE wrap. 2x2 gauze was placed in the web spaces to minimize moisture buildup and ulceration. The size of the wound on the dorsal aspect right ring finger at the proximal phalanx was 1.5 x 1.5 cm. The wound at the level of the MP joint was 1.5 x 1.5 cm. The longitudinal wound on the dorsum of the hand, ulnar, was 4 x 1.5 cm. The longitudinal wound on the dorsum of the hand, radial, was 3 x 1.5 cm. Tissue that was debrided was sent to Pathology for analysis and to Microbiology for culture. A positive culture may necessitate antibiotic modification. Because of the copious amounts of pus present which also encased the extensor tendon from the wrist to the ring finger, the patient will need longer term IV antibiotics through the use of a PICC line. Patient tolerated the procedure well and was sent to PACU in satisfactory condition. Patient will be sent upstairs for continued postop care. Will start Silver dressing changes tomorrow. Will encourage range of motion exercises to minimize stiffness. Grafts/Implants Used: None. - Complications None. - Admit VTE Documentation VTE Present on Admission: No VTE Mechan Device Prophylaxis: SCD's VTE Pharm Prophylaxis ordered?: No Code Visit Surgery Charges CPT - 06961 S61.234A, L02.511, M65.88, M79.89, Z86.14, F17.200 74279 L02.511, M65.88, M79.89, S61.234A, Z86.14, F17.200 20792 M65.88, L02.511, M79.89, S61.234A, Z86.14, F17.200 99633 M65.88, M79.89, L02.511, S61.234A, Z86.14, F17.200
--- NOTE | 2018-05-24 15:21 | PCA ---
pt off floor
[2018-05-24 17:45] LABS: M R Staph aureus DNA By PCR Negative (Negative); Probe Check PASS; Staph aureus DNA By PCR POSITIVE (Negative)
[2018-05-24 17:57] LABS: Hematocrit 42.3 % (40-54); Hemoglobin 14.3 g/dl (13.0-16.5); Mean Corp Hgb Conc 33.8 g/gl (32-36); Mean Corpuscular Hgb 30.2 pg (27.0-32.0); Mean Corpuscular Volume 89.2 fL (80-94); Mean Platelet Vol. 12.1 fl (6.2-12.0); Platelet Count 164 K/mm3 (150-450); RBC Distribution Width CV 13.9 % (11.6-14.6); RBC Distribution Width SD 45.9 fl (35.1-43.9); Red Blood Count 4.74 M/mm3 (4.6-6.2); White Blood Count 12.5 K/mm3 (4.4-11.0)
[2018-05-24 18:02] LABS: Scan Indicated on CBC? Y/N NO
[2018-05-24 18:11] LABS: Anion Gap 5 (5-15); BUN 12 mg/dL (7-18); BUN/Creat Ratio 12.8 RATIO (10-20); Chloride 109 mmol/L (98-107); Creatinine, Serum 0.94 mg/dL (0.70-1.30); EST Glomerular Filtration Rate 102 mL/min (>60); Est Glom Filt Rate - Afr Amer 123 mL/min (>60); Glucose 87 mg/dL (74-106); Potassium 3.9 mmol/L (3.5-5.1); Prealbumin 17.1 mg/dL (20.0-40.0); Sodium Level 140 mmol/L (136-145)
[2018-05-24] MEDS: Acetaminophen 325 MG Tablet 650 MG PO (18:21)
[2018-05-24] MEDS: oxyCODONE 5 MG Tablet 10 MG PO (19:43)
[2018-05-25] VITALS (8 sets, daily range): BP systolic 114–132; BP diastolic 58–74; PULSE 52–66; RESP 16–18; TEMP 36.7–37.4; O2SAT 88–99
[2018-05-25] MEDS: 0.9% NaCl IVPB Med Flush (250 mL) 15 ML IV (02:20)
[2018-05-25] MEDS: oxyCODONE 5 MG Tablet 10 MG PO (02:24)
[2018-05-25 06:22] LABS: Absolute Lymphocyte Count 1.83 X10^3/ul (0.83-4.51); Absolute Neutrophil Count 8.1 X10^3/uL (2.0-7.7); Basophil# 0.03 X10^3/uL; Basophil% 0.3 % (0-1); Eosinophil# 0.29 X10^3/uL; Eosinophils% 2.5 % (0-5); Hematocrit 40.5 % (40-54); Hemoglobin 13.4 g/dl (13.0-16.5); Lymphocyte # 1.83 X10^3/ul (4.0); Lymphocyte % 16.1 % (19-41); Mean Corp Hgb Conc 33.1 g/gl (32-36); Mean Corpuscular Hgb 29.7 pg (27.0-32.0); Mean Corpuscular Volume 89.8 fL (80-94); Mean Platelet Vol. 12.3 fl (6.2-12.0); Monocyte# 1.12 X10^3/uL; Monocyte% 9.8 % (0-10); Neutrophil % 71.2 % (47-70); Platelet Count 160 K/mm3 (150-450); Red Blood Count 4.51 M/mm3 (4.6-6.2); White Blood Count 11.4 K/mm3 (4.4-11.0)
[2018-05-25 06:27] LABS: POSITIVE COUNT NO; POSITIVE DIFFERENTIAL NO; POSITIVE MORPHOLOGY NO
[2018-05-25 06:44] LABS: Anion Gap 4 (5-15); BUN 11 mg/dL (7-18); BUN/Creat Ratio 11.9 RATIO (10-20); Chloride 112 mmol/L (98-107); Creatinine, Serum 0.92 mg/dL (0.70-1.30); EST Glomerular Filtration Rate 104 mL/min (>60); Est Glom Filt Rate - Afr Amer 126 mL/min (>60); Estimated Creatinine Clearance 116.68 ml/min; Glucose 97 mg/dL (74-106); Potassium 4.4 mmol/L (3.5-5.1); Sodium Level 142 mmol/L (136-145)
--- NOTE | 2018-05-25 10:10 | CASEMGMT ---
RN CM MITER CUTTER CM to room to meet with patient for initial transition planning/care coordination assessment. RN JULY introduced self and role at [facility]. Pt voices understanding and consents to assessment at this time. Pt resting in bed in no distress at this time. Pt is A/O at this time and answers all questions appropriately. Care providers, pharmacy, and demographics verified at this time. PCP: No PCP. Given list of local providers. Specialists: None Preferred [facility]acy: [facility]. Insurance: [employer] Prescription Benefit: Yes Living Will/HPOA: Pt does not currently have LW/HCPOA and declines info at this time. LNOK: Parents Living Arrangements: Lives with his cousin in one-story home. Independent. Works timers inspector. Transportation: Pt states drives self and states no transportation concerns at this time. Mother or father can drive him on on d/c. DME: Denies using any DME and denies needs. States is supposed to wear a CPAP but has not used it in years. HHC/SNF: No history of either. Pt may need IV atb's on d/c. Discussion with pt about options of HHC vs Out-pt IV. Pt states if he needs IV atb's on d/c, he is willing /able to learn how to administer them and may be interested in [facility] for teaching/training. Pt made aware CM will come back to talk with him once discharge plan is determined re: PO vs IV atb and discuss discharge plan in more detail. Pt wishes to return home and states has no concerns with going home at time of discharge. Smokes 1 PPD cigarettes. Is not interested in smoking cessation information. Pt voices no further concerns/needs at this time. Advised pt to ask for CM if any further questions/concerns/needs arise. Voices understanding. PLAN: Home. Undetermined at this time if pt will discharge home on PO or IV atb's. Cultures pending. If IV atb's are needed on d/c, may do HHC or Out-pt IV atb's. CM to follow. Joon CASTELLANOS RN, CM
--- NOTE | 2018-05-25 10:23 | PCM.HP.ID ---
Reason for Consult: Complicated right hand infection Consulted by: Dr. Collier History of Present Illness: The patient is a 27 year old Male; complicated right infection with concern of puncture; s/p surgical debridement yesterday. No fevers. - Medical History Allergies/Adverse Reactions: Allergies morphine Allergy (Verified 05/23/18 10:48) hallucinations Home Medications: Ambulatory Orders Medication Instructions Recorded NK 05/23/18 Vital Signs Temp Pulse Resp BP Pulse Ox 99.3 F H 52 L 16 118/66 99 05/25/18 09:00 05/25/18 09:00 05/25/18 09:15 05/25/18 09:00 05/25/18 09:00 Oxygen Flow Rate (L/min) 2 Oxygen Delivery Method Nasal Cannula Weight: 96.162 kg Body Mass Index (BMI) 32.2 Laboratory Tests Past 24 Hrs 05/24/18 05/24/18 05/24/18 10:15 13:35 17:39 WBC 12.5 H RBC 4.74 Hgb 14.3 Hct 42.3 MCV 89.2 MCH 30.2 MCHC 33.8 RDW 13.9 RDW Differential 45.9 H Plt Count 164 MPV 12.1 H Immature Gran % (Auto) Neut % (Auto) Lymph % (Auto) [place] % (Auto) Eos % (Auto) Baso % (Auto) Absolute Neuts (auto) Absolute Lymphs (auto) Total Counted Sodium Potassium Chloride Carbon Dioxide Anion Gap BUN Creatinine Estim Creat Clear Calc Est GFR (MDRD) Af Amer Est GFR (MDRD) Non-Af BUN/Creatinine Ratio Glucose Calcium Prealbumin Vancomycin Trough 8.8 S.aureus Protein A PCR POSITIVE H MRSA (PCR) Negative 05/24/18 05/25/18 05/25/18 17:39 06:10 06:10 WBC 11.4 H RBC 4.51 L Hgb 13.4 Hct 40.5 MCV 89.8 MCH 29.7 MCHC 33.1 RDW 14.0 RDW Differential 46.0 H Plt Count 160 MPV 12.3 H Immature Gran % (Auto) 0.100 Neut % (Auto) 71.2 H Lymph % (Auto) 16.1 L [place] % (Auto) 9.8 Eos % (Auto) 2.5 Baso % (Auto) 0.3 Absolute Neuts (auto) 8.1 H Absolute Lymphs (auto) 1.83 Total Counted Not Reportable Sodium 140 142 Potassium 3.9 4.4 Chloride 109 H 112 H Carbon Dioxide 26.0 26.0 Anion Gap 5 4 L BUN 12 11 Creatinine 0.94 0.92 Estim Creat Clear Calc 114.20 116.68 Est GFR (MDRD) Af Amer 123 126 Est GFR (MDRD) Non-Af 102 104 BUN/Creatinine Ratio 12.8 11.9 Glucose 87 97 Calcium 8.0 L 8.0 L Prealbumin 17.1 L Vancomycin Trough S.aureus Protein A PCR MRSA (PCR) - Other Studies Radiology: [] Other Studies: [] Route of nutrition/ use of supplements: [] Nutritional Intake: [] IV Site: [] Mccoy Catheter: [] - Physical Exam General: Oriented x3 HEENT: Atraumatic Neck: Supple, No Nodes Lungs: Clear to auscultation Cardiovascular: Regular rate Abdomen: Bowel Sounds Present, Soft, Non Tender, Non-Distended, No Hepato-splenomegaly Skin: No rashes IV Site: Peripheral Neurological: Cranial nerves II-XII grossly intact - Assessment/Plan Antibiotics: [] Assessment/Plan: [] continue iv antibiotics. await OR culture data
--- NOTE | 2018-05-25 10:47 | PCM.PN.HOSP ---
Patient Problems: Active and Suspected Problems Tenosynovitis of right hand (Acute) Puncture wound of right ring finger without foreign body without damage to nail (Acute) Cellulitis of right hand (Acute) Puncture wound infection dorsal proximal aspect right ring finger at proximal phalanx with extension onto dorsum of hand and proximal aspects small finger, long finger, and index finger with associated cellulitis. Subjective: Patient seen and examined. Had surgery of the right hand yesterday. He has no complaints this morning. Pain is well controlled. Review of systems otherwise negative. Labs and Vitals reviewed. Per discussion with plastic surgeon yesterday, patient had extensive past formation and therefore cellulitis was likely present for much longer than a couple of days. Patient will therefore need IV antibiotics and will need PICC line placement. ID consulted. Vitals/I&O's: Vital Signs Temp Pulse Resp BP Pulse Ox 99.3 F H 52 L 16 118/66 99 05/25/18 09:00 05/25/18 09:00 05/25/18 09:15 05/25/18 09:00 05/25/18 09:00 Oxygen Flow Rate (L/min) 2 Oxygen Delivery Method Nasal Cannula Weight: 212 lb Body Mass Index (BMI) 32.2 Intake and Output for Last 24 Hours 05/23/18 05/24/18 05/25/18 23:59 23:59 23:59 Intake Total 750 / 750 2848 / 2848 2478 / 2478 Balance 750 / 750 2848 / 2848 2478 / 2478 General: Alert, Oriented x3, Cooperative, No apparent distress HEENT: Atraumatic, PERRLA, EOMI, Normocephalic Oral: Moist Mucosa Neck: Supple, No JVD, Negative Carotid Bruits Lungs: Clear to auscultation, Normal air movement, No rhonchi, No wheeze, No rales Cardiovascular: Regular rate, Regular Rhythm, Normal S1, Normal S2, No murmurs Abdomen: Bowel Sounds Present, Soft, Non Tender, Non-Distended, No Hepato-splenomegaly Extremities: No clubbing, No cyanosis, No edema, Capillary Refill Less than 3 Seconds Skin: - - healing superficial puncture herbert on the dorsum of right second and fifth fingers Musculoskeletal: - -RUE wrapped in bandage. able to wiggle all fingers Lymphatic: No Cervical, Supraclavicular, or Inguinal Adenopathy Neurological: Cranial nerves II-XII grossly intact, Neuro grossly intact, Motor Exam 5/5 strength throughout Psych/Mental Status: Normal Affect, Appropriate, Alert and oriented to time, place, person, mood and affect Laboratory Results 05/24/18 10:15: Vancomycin Trough 8.8 05/24/18 13:35: S.aureus Protein A PCR POSITIVE H, MRSA (PCR) Negative 05/24/18 17:39: WBC 12.5 H, RBC 4.74, Hgb 14.3, Hct 42.3, MCV 89.2, MCH 30.2, MCHC 33.8, RDW 13.9, RDW Differential 45.9 H, Plt Count 164, MPV 12.1 H 05/24/18 17:39: Sodium 140, Potassium 3.9, Chloride 109 H, Carbon Dioxide 26.0, Anion Gap 5, BUN 12, Creatinine 0.94, Estim Creat Clear Calc 114.20, Est GFR (MDRD) Af Amer 123, Est GFR (MDRD) Non-Af 102, BUN/Creatinine Ratio 12.8, Glucose 87, Calcium 8.0 L, Prealbumin 17.1 L 05/25/18 06:10: WBC 11.4 H, RBC 4.51 L, Hgb 13.4, Hct 40.5, MCV 89.8, MCH 29.7, MCHC 33.1, RDW 14.0, RDW Differential 46.0 H, Plt Count 160, MPV 12.3 H, Immature Gran % (Auto) 0.100, Neut % (Auto) 71.2 H, Lymph % (Auto) 16.1 L, [place] % (Auto) 9.8, Eos % (Auto) 2.5, Baso % (Auto) 0.3, Absolute Neuts (auto) 8.1 H, Absolute Lymphs (auto) 1.83, Total Counted Not Reportable 05/25/18 06:10: Sodium 142, Potassium 4.4, Chloride 112 H, Carbon Dioxide 26.0, Anion Gap 4 L, BUN 11, Creatinine 0.92, Estim Creat Clear Calc 116.68, Est GFR (MDRD) Af Amer 126, Est GFR (MDRD) Non-Af 104, BUN/Creatinine Ratio 11.9, Glucose 97, Calcium 8.0 L Diagnostic Data Hand X-Ray 05/23/18 08:00 IMPRESSION: Mild dorsal soft tissue swelling Electronically Signed: Chalo Vo DO at 8:48 EDT Tel , Service support , Current Medications Acetaminophen (Tylenol) 650 mg PO Q6H PRN PRN PRN Reason: Mild Pain (1-3)/Temp > 100.7 F Last Admin: 05/24/18 18:21 Dose: 650 mg Enoxaparin Sodium (Lovenox) 40 mg SC DAILY@1000 VINAY Last Admin: 05/24/18 07:48 Dose: Not Given Hydromorphone HCl (Dilaudid Inj) 1 mg IV Q3H PRN PRN PRN Reason: SEVERE PAIN (6-10/10) Vancomycin IV Pharmacy to Dose (1 ea/ Sodium Chloride) 500 mls @ 250 mls/hr IV X1 PRN; Protocol PRN Reason: Rx to Dose Vancomycin HCl 2,000 mg/ (Sodium Chloride) 540 mls @ 250 mls/hr IV Q8H VINAY Last Admin: 05/25/18 02:20 Dose: 250 mls/hr Piperacillin Sod/Tazobactam (Sod 3.375 gm/ Sodium Chloride) 50 mls @ 12.5 mls/hr IV Q8 VINAY Last Admin: 05/25/18 05:29 Dose: 12.5 mls/hr Sodium Chloride () 250 mls @ 15 mls/hr IV .[id number] PRN PRN Reason: SALINE FLUSH Last Admin: 05/25/18 02:20 Dose: 15 mls/hr Magnesium Hydroxide (Milk Of Magnesia) 30 ml PO DAILY PRN PRN PRN Reason: Constipation Oxycodone HCl (Oxyir) 10 mg PO Q4H PRN PRN PRN Reason: SEVERE PAIN (6-10/10) Last Admin: 05/25/18 02:24 Dose: 10 mg Sodium Chloride () 5 - 15 ml IV UD PRN PRN Reason: SALINE FLUSH Last Admin: 05/24/18 02:55 Dose: 10 ml Medical Necessity - Tobacco Use Smoking Status: Current every day smoker Tobacco Use: Cigarettes Assessment/Plan All Active Problems Tenosynovitis of right hand (Acute) Puncture wound of right ring finger without foreign body without damage to nail (Acute) Cellulitis of right hand (Acute) 70-year-old male admitted with a complaint of swelling of the right hand. 1. Cellulitis of the right hand s/p incision and drainage of right hand had extensive pus, per plastic surgery. will need prolonged course of IV antibiotics; will need PICC line placement. ID consulted. Wound cultures pending. White cell count is down to 11.4. on IV vancomycin; says he has a history of MRSA; PCR here was negative for MRSA. Will consider switching to IV cefazolin 2. History of nicotine dependence: Smokes at least 1 pack daily. Counseled to quit. Nicotine patch 21 mg daily. DVT prophylaxis: lovenox Code Visit Inpatient E&M: 04562 [facility] Hosp L2
--- NOTE | 2018-05-25 10:55 | PN_ITS ---
Patient Problems: Active and Suspected Problems Tenosynovitis of right hand (Acute) Puncture wound of right ring finger without foreign body without damage to nail (Acute) Cellulitis of right hand (Acute) Puncture wound infection dorsal proximal aspect right ring finger at proximal phalanx with extension onto dorsum of hand and proximal aspects small finger, long finger, and index finger with associated cellulitis. Subjective: Patient seen and examined. Had surgery of the right hand yesterday. He has no complaints this morning. Pain is well controlled. Review of systems otherwise negative. Labs and Vitals reviewed. Per discussion with plastic surgeon yesterday, patient had extensive past formation and therefore cellulitis was likely present for much longer than a couple of days. Patient will therefore need IV antibiotics and will need PICC line placement. ID consulted. Vitals/I&O's: Vital Signs Temp Pulse Resp BP Pulse Ox 99.3 F H 52 L 16 118/66 99 05/25/18 09:00 05/25/18 09:00 05/25/18 09:15 05/25/18 09:00 05/25/18 09:00 Oxygen Flow Rate (L/min) 2 Oxygen Delivery Method Nasal Cannula Weight: 212 lb Body Mass Index (BMI) 32.2 Intake and Output for Last 24 Hours 05/23/18 05/24/18 05/25/18 23:59 23:59 23:59 Intake Total 750 / 750 2848 / 2848 2478 / 2478 Balance 750 / 750 2848 / 2848 2478 / 2478 General: Alert, Oriented x3, Cooperative, No apparent distress HEENT: Atraumatic, PERRLA, EOMI, Normocephalic Oral: Moist Mucosa Neck: Supple, No JVD, Negative Carotid Bruits Lungs: Clear to auscultation, Normal air movement, No rhonchi, No wheeze, No rales Cardiovascular: Regular rate, Regular Rhythm, Normal S1, Normal S2, No murmurs Abdomen: Bowel Sounds Present, Soft, Non Tender, Non-Distended, No Hepato- splenomegaly Extremities: No clubbing, No cyanosis, No edema, Capillary Refill Less than 3 Seconds Skin: - - healing superficial puncture herbert on the dorsum of right second and fifth fingers Musculoskeletal: - -RUE wrapped in bandage. able to wiggle all fingers Lymphatic: No Cervical, Supraclavicular, or Inguinal Adenopathy Neurological: Cranial nerves II-XII grossly intact, Neuro grossly intact, Motor Exam 5/5 strength throughout Psych/Mental Status: Normal Affect, Appropriate, Alert and oriented to time, place, person, mood and affect Laboratory Results 05/24/18 10:15: Vancomycin Trough 8.8 05/24/18 13:35: S.aureus Protein A PCR POSITIVE H, MRSA (PCR) Negative 05/24/18 17:39: WBC 12.5 H, RBC 4.74, Hgb 14.3, Hct 42.3, MCV 89.2, MCH 30.2, MCHC 33.8, RDW 13.9, RDW Differential 45.9 H, Plt Count 164, MPV 12.1 H 05/24/18 17:39: Sodium 140, Potassium 3.9, Chloride 109 H, Carbon Dioxide 26.0, Anion Gap 5, BUN 12, Creatinine 0.94, Estim Creat Clear Calc 114.20, Est GFR (MDRD) Af Amer 123, Est GFR (MDRD) Non-Af 102, BUN/Creatinine Ratio 12.8, Glucose 87, Calcium 8.0 L, Prealbumin 17.1 L 05/25/18 06:10: WBC 11.4 H, RBC 4.51 L, Hgb 13.4, Hct 40.5, MCV 89.8, MCH 29.7, MCHC 33.1, RDW 14.0, RDW Differential 46.0 H, Plt Count 160, MPV 12.3 H, Immature Gran % (Auto) 0.100, Neut % (Auto) 71.2 H, Lymph % (Auto) 16.1 L, [place] % (Auto) 9.8, Eos % (Auto) 2.5, Baso % (Auto) 0.3, Absolute Neuts (auto) 8.1 H, Absolute Lymphs (auto) 1.83, Total Counted Not Reportable 05/25/18 06:10: Sodium 142, Potassium 4.4, Chloride 112 H, Carbon Dioxide 26.0, Anion Gap 4 L, BUN 11, Creatinine 0.92, Estim Creat Clear Calc 116.68, Est GFR (MDRD) Af Amer 126, Est GFR (MDRD) Non-Af 104, BUN/Creatinine Ratio 11.9, Glucose 97, Calcium 8.0 L Diagnostic Data Hand X-Ray 05/23/18 08:00 IMPRESSION: Mild dorsal soft tissue swelling Electronically Signed: Chalo Vo DO at 8:48 EDT Tel , Service support , Current Medications Acetaminophen (Tylenol) 650 mg PO Q6H PRN PRN PRN Reason: Mild Pain (1-3)/Temp > 100.7 F Last Admin: 05/24/18 18:21 Dose: 650 mg Enoxaparin Sodium (Lovenox) 40 mg SC DAILY@1000 VINAY Last Admin: 05/24/18 07:48 Dose: Not Given Hydromorphone HCl (Dilaudid Inj) 1 mg IV Q3H PRN PRN PRN Reason: SEVERE PAIN (6-10/10) Vancomycin IV Pharmacy to Dose (1 ea/ Sodium Chloride) 500 mls @ 250 mls/hr IV X1 PRN; Protocol PRN Reason: Rx to Dose Vancomycin HCl 2,000 mg/ (Sodium Chloride) 540 mls @ 250 mls/hr IV Q8H VINAY Last Admin: 05/25/18 02:20 Dose: 250 mls/hr Piperacillin Sod/Tazobactam (Sod 3.375 gm/ Sodium Chloride) 50 mls @ 12.5 mls/hr IV Q8 VINAY Last Admin: 05/25/18 05:29 Dose: 12.5 mls/hr Sodium Chloride () 250 mls @ 15 mls/hr IV .[id number] PRN PRN Reason: SALINE FLUSH Last Admin: 05/25/18 02:20 Dose: 15 mls/hr Magnesium Hydroxide (Milk Of Magnesia) 30 ml PO DAILY PRN PRN PRN Reason: Constipation Oxycodone HCl (Oxyir) 10 mg PO Q4H PRN PRN PRN Reason: SEVERE PAIN (6-10/10) Last Admin: 05/25/18 02:24 Dose: 10 mg Sodium Chloride () 5 - 15 ml IV UD PRN PRN Reason: SALINE FLUSH Last Admin: 05/24/18 02:55 Dose: 10 ml Medical Necessity - Tobacco Use Smoking Status: Current every day smoker Tobacco Use: Cigarettes Assessment/Plan All Active Problems Tenosynovitis of right hand (Acute) Puncture wound of right ring finger without foreign body without damage to nail (Acute) Cellulitis of right hand (Acute) 70-year-old male admitted with a complaint of swelling of the right hand. 1. Cellulitis of the right hand s/p incision and drainage of right hand * had extensive pus, per plastic surgery. * will need prolonged course of IV antibiotics; will need PICC line placement. * ID consulted. * Wound cultures pending. White cell count is down to 11.4. * on IV vancomycin; says he has a history of MRSA; PCR here was negative for MRSA. Will consider switching to IV cefazolin * 2. History of nicotine dependence: Smokes at least 1 pack daily. Counseled to quit. Nicotine patch 21 mg daily. DVT prophylaxis: lovenox Code Visit Inpatient E&M: [id number] [facility] Hosp L2
[2018-05-25] MEDS: 0.9% NaCl Peripheral Flush Adult/Peds IV ×2 (11:28→14:47)
[2018-05-25] MEDS: HYDROmorphone 1 MG/ML Syringe IV (11:28)
[2018-05-25] MEDS: Enoxaparin 40 MG/0.4 ML Syringe SC (11:30)
[2018-05-25 12:49] LABS: Vancomycin, Trough Level 16.3 ug/mL (5.0-15.0)
--- NOTE | 2018-05-25 13:24 | PN.SURG_ITS ---
Subjective: Postop #1 Patient is resting comfortably. Tolerated the Silver dressing change well. - Physical Exam General: Alert, Oriented x3 HEENT: PERRLA, EOMI Oral: Moist Mucosa Neck: Supple Abdomen: Soft, Non-Distended Skin: Ulcer/ Wound - right hand wounds are stable. Minimal bleeding seen. No further evidence of infection. Swelling less. Wounds redressed with Aquacel Silver. He tolerated it well. Musculoskeletal: - - radial pulses palpable. Can passive flex his MP joints right hand, a little less with the ring finger secondary to pain and recent surgery. Neurological: Cranial nerves II-XII grossly intact Psych/Mental Status: Normal Affect, Appropriate Vital Signs Temp Pulse Resp BP Pulse Ox 99.3 F H 52 L 16 118/66 99 05/25/18 09:00 05/25/18 09:00 05/25/18 09:15 05/25/18 09:00 05/25/18 09:00 Oxygen Flow Rate (L/min) 2 Oxygen Delivery Method Nasal Cannula Weight: 212 lb Body Mass Index (BMI) 32.2 Intake and Output for Last 24 Hours 05/23/18 05/24/18 05/25/18 23:59 23:59 23:59 Intake Total 750 / 750 2848 / 2848 3828 / 3828 Balance 750 / 750 2848 / 2848 3828 / 3828 Microbiology Past 72 Hours 05/24/18 14:49 Wound Culture - Preliminary Tissue - Finger No growth-Final to follow Laboratory Tests Past 24 Hrs 05/24/18 05/24/18 05/24/18 13:35 17:39 17:39 WBC 12.5 H RBC 4.74 Hgb 14.3 Hct 42.3 MCV 89.2 MCH 30.2 MCHC 33.8 RDW 13.9 RDW Differential 45.9 H Plt Count 164 MPV 12.1 H Immature Gran % (Auto) Neut % (Auto) Lymph % (Auto) [place] % (Auto) Eos % (Auto) Baso % (Auto) Absolute Neuts (auto) Absolute Lymphs (auto) Total Counted Sodium 140 Potassium 3.9 Chloride 109 H Carbon Dioxide 26.0 Anion Gap 5 BUN 12 Creatinine 0.94 Estim Creat Clear Calc 114.20 Est GFR (MDRD) Af Amer 123 Est GFR (MDRD) Non-Af 102 BUN/Creatinine Ratio 12.8 Glucose 87 Calcium 8.0 L Prealbumin 17.1 L Vancomycin Trough S.aureus Protein A PCR POSITIVE H MRSA (PCR) Negative 05/25/18 05/25/18 05/25/18 06:10 06:10 11:28 WBC 11.4 H RBC 4.51 L Hgb 13.4 Hct 40.5 MCV 89.8 MCH 29.7 MCHC 33.1 RDW 14.0 RDW Differential 46.0 H Plt Count 160 MPV 12.3 H Immature Gran % (Auto) 0.100 Neut % (Auto) 71.2 H Lymph % (Auto) 16.1 L [place] % (Auto) 9.8 Eos % (Auto) 2.5 Baso % (Auto) 0.3 Absolute Neuts (auto) 8.1 H Absolute Lymphs (auto) 1.83 Total Counted Not Reportable Sodium 142 Potassium 4.4 Chloride 112 H Carbon Dioxide 26.0 Anion Gap 4 L BUN 11 Creatinine 0.92 Estim Creat Clear Calc 116.68 Est GFR (MDRD) Af Amer 126 Est GFR (MDRD) Non-Af 104 BUN/Creatinine Ratio 11.9 Glucose 97 Calcium 8.0 L Prealbumin Vancomycin Trough 16.3 H S.aureus Protein A PCR MRSA (PCR) Medical Necessity - Tobacco Use Smoking Status: Current every day smoker Tobacco Use: Cigarettes Assessment/Plan All Active Problems Necrotizing soft tissue infection (Acute) Abscess of right hand including fingers (Acute) Suppurative tenosynovitis (Acute) Tenosynovitis of right hand (Acute) Puncture wound of right ring finger without foreign body without damage to nail (Acute) Cellulitis of right hand (Acute) 1. 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 2. History of MRSA. 3. Extensor suppurative tenosynovitis dorsum right hand at MP joint ring finger. 4. s/p surgical preparation dorsal aspect right ring finger at proximal aspect and dorsum right hand with incision and drainage and excisional debridement puncture wound necrotizing abscess and radical excision suppurative bursa and sy novia extensor tendon sheath to ring finger at wrist with extension onto dorsum of hand with extensor suppurative tenosynovectomy and incision and drainage extensor tendon sheath dorsum right hand to ring finger for suppurative tenosynovitis. 5. Smoker. Wound looks clean. Minimal oozing seen. No further clinical evidence of infection. Swelling less. Can passively flex his MP joints. Wound redressed with Aquacel Silver. He tolerated it well. Operative culture is pending. MRSA screen showed MSSA. He is currently on Vancomycin and Zosyn. With the severity of the suppurative tenosynovitis in his dominant right hand, he will need antibiotics for 6 weeks and IV antibiotics for at least 2 weeks. When I see him postop in the office, when adequate healing is noted, can switch to po antibiotics for the remaining time for a total of six weeks. If healing is suboptimal, then he will continue the IV antibiotics at that time. Continue to elevate his right hand to minimize the swelling. Will encourage range of motion exercises to minimize stiffness. Anticipate increased metabolic demands from the infection and from the surgical wounds. Prealbumin was 17.1. Will encourage nutritional supplementation with protein to help the healing process. Encouraged patient to stop smoking as it may have deleterious effects on wound healing.
--- NOTE | 2018-05-25 16:50 | PCM.RX.CS ---
Consult Pharmacy has been consulted to manage selected antiobiotic: Vancomycin Type of Consult: Follow-up Suspected Infection: Skin/Soft tissue Prior Doses of Antibiotics Received/Current Regimen: Vancomycin 1250mg IV Labs: Sodium 142 mmol/L (136-145) 05/25/18 06:10 Potassium 4.4 mmol/L (3.5-5.1) 05/25/18 06:10 Chloride 112 mmol/L (98-107) H 05/25/18 06:10 Carbon Dioxide 26.0 mmol/L (21.0-32.0) 05/25/18 06:10 Anion Gap 4 (5-15) L 05/25/18 06:10 BUN 11 mg/dL (7-18) 05/25/18 06:10 Creatinine 0.92 mg/dL (0.70-1.30) 05/25/18 06:10 Est GFR (MDRD) Af Amer 126 mL/min (>60) 05/25/18 06:10 Est GFR (MDRD) Non-Af 104 mL/min (>60) 05/25/18 06:10 BUN/Creatinine Ratio 11.9 RATIO (10-20) 05/25/18 06:10 Glucose 97 mg/dL (74-106) 05/25/18 06:10 Vancomycin Trough 16.3 ug/mL (5.0-15.0) H 05/25/18 11:28 Microbiology: Microbiology 05/24/18 14:49 Tissue - Finger Gram Stain - Final 05/24/18 14:49 Tissue - Finger Wound Culture - Preliminary No growth-Final to follow Weight used for dosin kg Estimated Creatinine Clearance: 110ml/min Goal Trough: 15-20 mcg/mL Pharmacy Plan for Drug Dosing: Pt's previous trough results came back at 8.8. The Vancomycin dose was increased to 2000mg IV q8h, and the trough was to be drawn before the 4th dose on 05/25/18 at 1830. The trough was rescheduled by nursing to be drawn before the 3rd dose, which isn't an accurate representation of a trough at steady state. That level came back at 16.3. Another level will be drawn on 05/26/18 at 0230 (before the 5th dose) to get a more accurate representation of what the level is a steady state. Pharmacy Service will continue to monitor and adjust dosing as required. Follow-Up Labs: Trough Vancomycin - 05/26/18 at 0230 Labs to be done on [date and time ordered]: trough level 05/26/18 at 0230
--- NOTE | 2018-05-25 18:47 | NURSING ---
PICC line ordered / - service writer advisor not called yet d/t Dr. Balderas wants to wait for surgery cultures to come back to see if needs IV antibiotics are needed
[2018-05-26 02:25] VITALS: BP 119/66; PULSE 53; RESP 16; TEMP 36.6; O2SAT 97
[2018-05-26 03:10] LABS: Absolute Lymphocyte Count 1.69 X10^3/ul (0.83-4.51); Absolute Neutrophil Count 5.8 X10^3/uL (2.0-7.7); Basophil# 0.03 X10^3/uL; Basophil% 0.3 % (0-1); Eosinophil# 0.44 X10^3/uL; Eosinophils% 4.9 % (0-5); Hematocrit 42.6 % (40-54); Hemoglobin 14.3 g/dl (13.0-16.5); Lymphocyte # 1.69 X10^3/ul (4.0); Mean Corp Hgb Conc 33.6 g/gl (32-36); Mean Corpuscular Volume 89.5 fL (80-94); Mean Platelet Vol. 12.4 fl (6.2-12.0); Monocyte# 0.89 X10^3/uL; Neutrophil # 5.83 X10^3/uL (2.7-7.7); Neutrophil % 65.7 % (47-70); POSITIVE COUNT NO; POSITIVE DIFFERENTIAL NO; POSITIVE MORPHOLOGY NO; Platelet Count 174 K/mm3 (150-450); RBC Distribution Width CV 13.7 % (11.6-14.6); RBC Distribution Width SD 45.2 fl (35.1-43.9); Red Blood Count 4.76 M/mm3 (4.6-6.2); White Blood Count 8.9 K/mm3 (4.4-11.0)
[2018-05-26 04:00] LABS: Vancomycin, Trough Level 17.7 ug/mL (5.0-15.0)
[2018-05-26 04:05] LABS: Anion Gap 7 (5-15); BUN 13 mg/dL (7-18); BUN/Creat Ratio 15.7 RATIO (10-20); Calcium,Total 8.4 mg/dL (8.5-10.1); Chloride 110 mmol/L (98-107); Creatinine, Serum 0.83 mg/dL (0.70-1.30); EST Glomerular Filtration Rate 118 mL/min (>60); Est Glom Filt Rate - Afr Amer 142 mL/min (>60); Estimated Creatinine Clearance 129.34 ml/min; Glucose 102 mg/dL (74-106); Potassium 4.4 mmol/L (3.5-5.1); Sodium Level 143 mmol/L (136-145)
--- NOTE | 2018-05-26 04:14 | PCM.RX.CS ---
Consult Pharmacy has been consulted to manage selected antiobiotic: Vancomycin Type of Consult: Follow-up Suspected Infection: Skin/Soft tissue Prior Doses of Antibiotics Received/Current Regimen: Medications Vancomycin HCl 2,000 mg/ (Sodium Chloride) 540 mls @ 250 mls/hr IV Q8H VINAY Last Admin: 05/26/18 02:59 Dose: 250 mls/hr Labs: Sodium 143 mmol/L (136-145) 05/26/18 02:45 Potassium 4.4 mmol/L (3.5-5.1) 05/26/18 02:45 Chloride 110 mmol/L (98-107) H 05/26/18 02:45 Carbon Dioxide 26.0 mmol/L (21.0-32.0) 05/26/18 02:45 Anion Gap 7 (5-15) 05/26/18 02:45 BUN 13 mg/dL (7-18) 05/26/18 02:45 Creatinine 0.83 mg/dL (0.70-1.30) 05/26/18 02:45 Est GFR (MDRD) Af Amer 142 mL/min (>60) 05/26/18 02:45 Est GFR (MDRD) Non-Af 118 mL/min (>60) 05/26/18 02:45 BUN/Creatinine Ratio 15.7 RATIO (10-20) 05/26/18 02:45 Glucose 102 mg/dL (74-106) 05/26/18 02:45 Vancomycin Trough 17.7 ug/mL (5.0-15.0) H 05/26/18 02:45 Microbiology: Microbiology 05/24/18 14:49 Tissue - Finger Gram Stain - Final 05/24/18 14:49 Tissue - Finger Wound Culture - Preliminary No growth-Final to follow Weight used for dosin kg Estimated Creatinine Clearance: 129 Goal Trough: 15-20 mcg/mL Pharmacy Plan for Drug Dosing: Trough level of 17.7 was within target range. Will continue dosing regimen of 2g q8h and re-draw trough level in four days. Pharmacy Service will continue to monitor and adjust dosing as required. Follow-Up Labs: Trough Vancomycin Labs to be done on [date and time ordered]: 05/30/18 @1030
[2018-05-26 07:38] VITALS: O2SAT 96
[2018-05-26 08:25] VITALS: BP 125/70; PULSE 53; RESP 18; TEMP 36.6; O2SAT 98
[2018-05-26 09:02] VITALS: RESP 18
--- NOTE | 2018-05-26 09:07 | NURSING ---
Addendum entered by Camila Fya 05/26/18 10:02: After Kori DUMAS talked with Dr. Mukherjee, Dr. Collier, and Infectious Disase doctor Dr. Balderas, all 3 doctors are in agreement that we proceed to place a PICC line. Original Note: This nurse contacted shed workers supervisor and will call back with Estimated time they will be here.
--- NOTE | 2018-05-26 10:04 | NURSING ---
construction equipment operator just called back and time of arrival will be between 11:00 to 12:00 today.
--- NOTE | 2018-05-26 10:20 | PN.ID_ITS ---
Subjective: Patient overall clinically stable. Had an uneventful night and tolerating parenteral antimicrobial therapy well. Operative specimen from his right hand growing Staphylococcus aureus with sensitivities pending. Objective: Alert and oriented does not appear toxic lungs are clear heart exam S1-S2 no murmurs appreciated. Right hand postop dressings are in place - Physical Exam Vital Signs Temp Pulse Resp BP Pulse Ox 97.8 F 53 L 18 125/70 H 98 05/26/18 08:25 05/26/18 08:25 05/26/18 09:02 05/26/18 08:25 05/26/18 08:25 Oxygen Flow Rate (L/min) 2 Oxygen Delivery Method Room Air Weight: 96.162 kg Body Mass Index (BMI) 32.2 Intake and Output for Last 24 Hours 05/24/18 05/25/18 05/26/18 23:59 23:59 23:59 Intake Total 2848 / 2848 5403 / 5403 3 / 3 Balance 2848 / 2848 5403 / 5403 2062 / 2062 Microbiology Past 72 Hours 05/24/18 14:49 Gram Stain - Final Tissue - Finger Wound Culture - Preliminary Staphylococcus aureus Laboratory Tests Past 24 Hrs 05/25/18 05/26/18 05/26/18 11:28 02:45 02:45 WBC 8.9 RBC 4.76 Hgb 14.3 Hct 42.6 MCV 89.5 MCH 30.0 MCHC 33.6 RDW 13.7 RDW Differential 45.2 H Plt Count 174 MPV 12.4 H Immature Gran % (Auto) 0.100 Neut % (Auto) 65.7 Lymph % (Auto) 19.0 [place] % (Auto) 10.0 Eos % (Auto) 4.9 Baso % (Auto) 0.3 Absolute Neuts (auto) 5.8 Absolute Lymphs (auto) 1.69 Total Counted Not Reportable Sodium 143 Potassium 4.4 Chloride 110 H Carbon Dioxide 26.0 Anion Gap 7 BUN 13 Creatinine 0.83 Estim Creat Clear Calc 129.34 Est GFR (MDRD) Af Amer 142 Est GFR (MDRD) Non-Af 118 BUN/Creatinine Ratio 15.7 Glucose 102 Calcium 8.4 L Vancomycin Trough 16.3 H 05/26/18 02:45 WBC RBC Hgb Hct MCV MCH MCHC RDW RDW Differential Plt Count MPV Immature Gran % (Auto) Neut % (Auto) Lymph % (Auto) [place] % (Auto) Eos % (Auto) Baso % (Auto) Absolute Neuts (auto) Absolute Lymphs (auto) Total Counted Sodium Potassium Chloride Carbon Dioxide Anion Gap BUN Creatinine Estim Creat Clear Calc Est GFR (MDRD) Af Amer Est GFR (MDRD) Non-Af BUN/Creatinine Ratio Glucose Calcium Vancomycin Trough 17.7 H Medical Necessity - Tobacco Use Smoking Status: Current every day smoker Tobacco Use: Cigarettes Route of nutrition/ use of supplements: [] Nutritional Intake: [] IV Site: [] Mccoy Catheter: [] - Assessment/Plan Complicated right hand infection with Staphylococcus aureus isolated from the operative specimen. We will arrange for PICC placement and IV antibiotics for total of 4 weeks through June 20. If the isolate is MRSA then I would treat with vancomycin parenterally. If his MSSA Ancef 2 g IV every 8 hours will be the drug of choice.
[2018-05-26] MEDS: Enoxaparin 40 MG/0.4 ML Syringe SC (10:43)
--- NOTE | 2018-05-26 10:53 | CASEMGMT ---
Addendum entered by Asher Suárez 05/26/18 13:41: Called to Aisha @ [facility] [phone]. They are working up financial information and will contact patient. PITER MCDOWELL to call in am with final culture and medication. -Per Maty, [facility], start of care will be on Tuesday due to pt load. Will contact field operations technician nurse for [facility] tomorrow when IV infusion is set up. Jamshid WRIGHT Original Note: PITER MCDOWELL Note: Per Dr. Lake, pt will need IV antibiotics on discharge for 4 weeks. Final culture expected back tomorrow. Final antibiotic will depend on whether it is MRSA positive or not. Referral faxed to [facility]. Call to [facility], verified referral was received. It has not been processed yet. -[facility] for IV antibiotics at home. Pt states he does not have someone to assist and will need to learn himself. Maty from [facility] updated including start of care will be Saturday 05/27 for evening dose if [facility] is able to complete referral. Jamshid WRIGHT
--- NOTE | 2018-05-26 11:31 | NURSING ---
pediatric lpn here
--- NOTE | 2018-05-26 14:02 | PN.SURG_ITS ---
Subjective: Postop #2 Patient is resting comfortably. Tolerated Silver dressing change well. - Physical Exam General: Alert, Oriented x3 HEENT: PERRLA, EOMI Oral: Moist Mucosa Neck: Supple Abdomen: Soft, Non-Distended Skin: Ulcer/ Wound - right hand wounds are stable. Minimal bleeding seen. No further evidence of infection. Swelling less. Wounds redressed with Aquacel Silver. He tolerated it well. Neurological: Cranial nerves II-XII grossly intact Psych/Mental Status: Normal Affect, Appropriate Vital Signs Temp Pulse Resp BP Pulse Ox 97.8 F 53 L 18 125/70 H 98 05/26/18 08:25 05/26/18 08:25 05/26/18 09:02 05/26/18 08:25 05/26/18 08:25 Oxygen Flow Rate (L/min) 2 Oxygen Delivery Method Room Air Weight: 212 lb Body Mass Index (BMI) 32.2 Intake and Output for Last 24 Hours 05/24/18 05/25/18 05/26/18 23:59 23:59 23:59 Intake Total 2848 / 2848 5403 / 5403 3213 / 3213 Balance 2848 / 2848 5403 / 5403 3213 / 3213 Microbiology Past 72 Hours 05/24/18 14:49 Gram Stain - Final Tissue - Finger Wound Culture - Preliminary Staphylococcus aureus Anaerobic Culture - Final No anaerobic bacteria isolated. Laboratory Tests Past 24 Hrs 05/26/18 05/26/18 05/26/18 02:45 02:45 02:45 WBC 8.9 RBC 4.76 Hgb 14.3 Hct 42.6 MCV 89.5 MCH 30.0 MCHC 33.6 RDW 13.7 RDW Differential 45.2 H Plt Count 174 MPV 12.4 H Immature Gran % (Auto) 0.100 Neut % (Auto) 65.7 Lymph % (Auto) 19.0 [place] % (Auto) 10.0 Eos % (Auto) 4.9 Baso % (Auto) 0.3 Absolute Neuts (auto) 5.8 Absolute Lymphs (auto) 1.69 Total Counted Not Reportable Sodium 143 Potassium 4.4 Chloride 110 H Carbon Dioxide 26.0 Anion Gap 7 BUN 13 Creatinine 0.83 Estim Creat Clear Calc 129.34 Est GFR (MDRD) Af Amer 142 Est GFR (MDRD) Non-Af 118 BUN/Creatinine Ratio 15.7 Glucose 102 Calcium 8.4 L Vancomycin Trough 17.7 H Medical Necessity - Tobacco Use Smoking Status: Current every day smoker Tobacco Use: Cigarettes Assessment/Plan All Active Problems Necrotizing soft tissue infection (Acute) Abscess of right hand including fingers (Acute) Suppurative tenosynovitis (Acute) Tenosynovitis of right hand (Acute) Puncture wound of right ring finger without foreign body without damage to nail (Acute) Cellulitis of right hand (Acute) 1. 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 2. History of MRSA. 3. Extensor suppurative tenosynovitis dorsum right hand at MP joint ring finger. 4. s/p surgical preparation dorsal aspect right ring finger at proximal aspect and dorsum right hand with incision and drainage and excisional debridement puncture wound necrotizing abscess and radical excision suppurative bursa and syn[place] extensor tendon sheath to ring finger at wrist with extension onto dorsum of hand with extensor suppurative tenosynovectomy and incision and drainage extensor tendon sheath dorsum right hand to ring finger for suppurative tenosynovitis. 5. Smoker. Wound looks clean. Minimal oozing seen. No further clinical evidence of infection. Swelling less. Can passively flex his MP joints. Wound redressed with Aquacel Silver. He tolerated it well. Operative culture shows Staphylococcus aureus. MRSA screen showed MSSA. He is currently on Vancomycin. Will add Ancef. With the severity of the suppurative tenosynovitis in his dominant right hand, he will need antibiotics for 6 weeks and IV antibiotics for at least 2 weeks. When I see him postop in the office, when adequate healing is noted, can switch to po antibiotics for the remaining time for a total of six weeks. If healing is suboptimal, then he will continue the IV antibiotics at that time. Continue to elevate his right hand to minimize the swelling. Will encourage range of motion exercises to minimize stiffness. Anticipate increased metabolic demands from the infection and from the surgical wounds. Prealbumin was 17.1. Will encourage nutritional supplementation with protein to help the healing process. Encouraged patient to stop smoking as it may have deleterious effects on wound healing.
[2018-05-26] MEDS: 0.9% NaCl Peripheral Flush Adult/Peds IV (14:25)
[2018-05-26] MEDS: Cefazolin 2 GM in 0.9% Normal Saline 100 ML IV ×2 (14:25→21:48)
--- NOTE | 2018-05-26 14:43 | PCM.PN.HOSP ---
Subjective: Patient seen and examined. He had no complaints. Review of systems otherwise negative. Pain well controlled. Vitals/I&O's: Vital Signs Temp Pulse Resp BP Pulse Ox 97.8 F 53 L 18 125/70 H 98 05/26/18 08:25 05/26/18 08:25 05/26/18 09:02 05/26/18 08:25 05/26/18 08:25 Oxygen Flow Rate (L/min) 2 Oxygen Delivery Method Room Air Weight: 212 lb Body Mass Index (BMI) 32.2 Intake and Output for Last 24 Hours 05/24/18 05/25/18 05/26/18 23:59 23:59 23:59 Intake Total 2848 / 2848 5403 / 5403 3213 / 3213 Balance 2848 / 2848 5403 / 5403 3213 / 3213 General: Alert, Oriented x3, Cooperative, No apparent distress HEENT: Atraumatic, PERRLA, EOMI, Normocephalic Oral: Moist Mucosa Neck: Supple, No JVD, Negative Carotid Bruits Lungs: Clear to auscultation, Normal air movement, No rhonchi, No wheeze, No rales Cardiovascular: Regular rate, Regular Rhythm, Normal S1, Normal S2, No murmurs Abdomen: Bowel Sounds Present, Soft, Non Tender, Non-Distended, No Hepato-splenomegaly Extremities: No clubbing, No cyanosis, No edema, Capillary Refill Less than 3 Seconds Skin: - - RUE wrapped in bandage. Musculoskeletal: - -RUE wrapped in bandage. able to wiggle all fingers Lymphatic: No Cervical, Supraclavicular, or Inguinal Adenopathy Neurological: Cranial nerves II-XII grossly intact, Neuro grossly intact, Motor Exam 5/5 strength throughout Psych/Mental Status: Normal Affect, Appropriate, Alert and oriented to time, place, person, mood and affect Microbiology Past 72 Hours 05/24/18 14:49 Tissue - Finger Gram Stain - Final 05/24/18 14:49 Tissue - Finger Wound Culture - Preliminary Staphylococcus aureus 05/24/18 14:49 Tissue - Finger Anaerobic Culture - Final No anaerobic bacteria isolated. Laboratory Results 05/26/18 02:45: WBC 8.9, RBC 4.76, Hgb 14.3, Hct 42.6, MCV 89.5, MCH 30.0, MCHC 33.6, RDW 13.7, RDW Differential 45.2 H, Plt Count 174, MPV 12.4 H, Immature Gran % (Auto) 0.100, Neut % (Auto) 65.7, Lymph % (Auto) 19.0, [place] % (Auto) 10.0, Eos % (Auto) 4.9, Baso % (Auto) 0.3, Absolute Neuts (auto) 5.8, Absolute Lymphs (auto) 1.69, Total Counted Not Reportable 05/26/18 02:45: Sodium 143, Potassium 4.4, Chloride 110 H, Carbon Dioxide 26.0, Anion Gap 7, BUN 13, Creatinine 0.83, Estim Creat Clear Calc 129.34, Est GFR (MDRD) Af Amer 142, Est GFR (MDRD) Non-Af 118, BUN/Creatinine Ratio 15.7, Glucose 102, Calcium 8.4 L 05/26/18 02:45: Vancomycin Trough 17.7 H Current Medications Acetaminophen (Tylenol) 650 mg PO Q6H PRN PRN PRN Reason: Mild Pain (1-3)/Temp > 100.7 F Last Admin: 05/24/18 18:21 Dose: 650 mg Enoxaparin Sodium (Lovenox) 40 mg SC DAILY@1000 VINAY Last Admin: 05/26/18 10:43 Dose: 40 mg Hydromorphone HCl (Dilaudid Inj) 1 mg IV Q3H PRN PRN PRN Reason: SEVERE PAIN (6-10/10) Last Admin: 05/25/18 11:28 Dose: 1 mg Vancomycin IV Pharmacy to Dose (1 ea/ Sodium Chloride) 500 mls @ 250 mls/hr IV X1 PRN; Protocol PRN Reason: Rx to Dose Sodium Chloride () 250 mls @ 15 mls/hr IV .[id number] PRN PRN Reason: SALINE FLUSH Last Admin: 05/25/18 02:20 Dose: 15 mls/hr Cefazolin Sodium 2 gm/ Sodium (Chloride) 110 mls @ 150 mls/hr IV Q8 VINAY Last Admin: 05/26/18 14:25 Dose: 150 mls/hr Magnesium Hydroxide (Milk Of Magnesia) 30 ml PO DAILY PRN PRN PRN Reason: Constipation Oxycodone HCl (Oxyir) 10 mg PO Q4H PRN PRN PRN Reason: SEVERE PAIN (6-10/10) Last Admin: 05/25/18 02:24 Dose: 10 mg Sodium Chloride () 5 - 15 ml IV UD PRN PRN Reason: SALINE FLUSH Last Admin: 05/26/18 14:25 Dose: 10 ml Medical Necessity - Tobacco Use Smoking Status: Current every day smoker Tobacco Use: Cigarettes Assessment/Plan All Active Problems Necrotizing soft tissue infection (Acute) Abscess of right hand including fingers (Acute) Suppurative tenosynovitis (Acute) Tenosynovitis of right hand (Acute) Puncture wound of right ring finger without foreign body without damage to nail (Acute) Cellulitis of right hand (Acute) 70-year-old male admitted with a complaint of swelling of the right hand. 1. Cellulitis of the right hand s/p incision and drainage of right hand had extensive pus, per plastic surgery. will need prolonged course of IV antibiotics;wound cultured Staph aureus. was negative for MRSA will stop vancomycin and start IV cefazolin ID on ; will need prolonged course of IV antibiotics leucocytosis has resolved. to be on IV cefazolin till June 20 for a total of 4 weeks. will need follow up with ID and plastic surgery upon discharge. 2. History of nicotine dependence: Smokes at least 1 pack daily. Counseled to quit. Nicotine patch 21 mg daily. DVT prophylaxis: lovenox Disposition: for likely dc tomorrow; home health can start giving IV antibiotics to patient from tuesday. he will therefore have to stay in hospital till tomorrow to receive tomorrow's course of antibiotics. Code Visit Inpatient E&M: 55651 Subs Hosp L2
--- NOTE | 2018-05-26 14:49 | PN_ITS ---
Subjective: Patient seen and examined. He had no complaints. Review of systems otherwise negative. Pain well controlled. Vitals/I&O's: Vital Signs Temp Pulse Resp BP Pulse Ox 97.8 F 53 L 18 125/70 H 98 05/26/18 08:25 05/26/18 08:25 05/26/18 09:02 05/26/18 08:25 05/26/18 08:25 Oxygen Flow Rate (L/min) 2 Oxygen Delivery Method Room Air Weight: 212 lb Body Mass Index (BMI) 32.2 Intake and Output for Last 24 Hours 05/24/18 05/25/18 05/26/18 23:59 23:59 23:59 Intake Total 2848 / 2848 5403 / 5403 3213 / 3213 Balance 2848 / 2848 5403 / 5403 3213 / 3213 General: Alert, Oriented x3, Cooperative, No apparent distress HEENT: Atraumatic, PERRLA, EOMI, Normocephalic Oral: Moist Mucosa Neck: Supple, No JVD, Negative Carotid Bruits Lungs: Clear to auscultation, Normal air movement, No rhonchi, No wheeze, No rales Cardiovascular: Regular rate, Regular Rhythm, Normal S1, Normal S2, No murmurs Abdomen: Bowel Sounds Present, Soft, Non Tender, Non-Distended, No Hepato- splenomegaly Extremities: No clubbing, No cyanosis, No edema, Capillary Refill Less than 3 Seconds Skin: - - RUE wrapped in bandage. Musculoskeletal: - -RUE wrapped in bandage. able to wiggle all fingers Lymphatic: No Cervical, Supraclavicular, or Inguinal Adenopathy Neurological: Cranial nerves II-XII grossly intact, Neuro grossly intact, Motor Exam 5/5 strength throughout Psych/Mental Status: Normal Affect, Appropriate, Alert and oriented to time, place, person, mood and affect Microbiology Past 72 Hours 05/24/18 14:49 Tissue - Finger Gram Stain - Final 05/24/18 14:49 Tissue - Finger Wound Culture - Preliminary Staphylococcus aureus 05/24/18 14:49 Tissue - Finger Anaerobic Culture - Final No anaerobic bacteria isolated. Laboratory Results 05/26/18 02:45: WBC 8.9, RBC 4.76, Hgb 14.3, Hct 42.6, MCV 89.5, MCH 30.0, MCHC 33.6, RDW 13.7, RDW Differential 45.2 H, Plt Count 174, MPV 12.4 H, Immature Gran % (Auto) 0.100, Neut % (Auto) 65.7, Lymph % (Auto) 19.0, [place] % (Auto) 10.0, Eos % (Auto) 4.9, Baso % (Auto) 0.3, Absolute Neuts (auto) 5.8, Absolute Lymphs (auto) 1.69, Total Counted Not Reportable 05/26/18 02:45: Sodium 143, Potassium 4.4, Chloride 110 H, Carbon Dioxide 26.0, Anion Gap 7, BUN 13, Creatinine 0.83, Estim Creat Clear Calc 129.34, Est GFR (MDRD) Af Amer 142, Est GFR (MDRD) Non-Af 118, BUN/Creatinine Ratio 15.7, Glucose 102, Calcium 8.4 L 05/26/18 02:45: Vancomycin Trough 17.7 H Current Medications Acetaminophen (Tylenol) 650 mg PO Q6H PRN PRN PRN Reason: Mild Pain (1-3)/Temp > 100.7 F Last Admin: 05/24/18 18:21 Dose: 650 mg Enoxaparin Sodium (Lovenox) 40 mg SC DAILY@1000 VINAY Last Admin: 05/26/18 10:43 Dose: 40 mg Hydromorphone HCl (Dilaudid Inj) 1 mg IV Q3H PRN PRN PRN Reason: SEVERE PAIN (6-10/10) Last Admin: 05/25/18 11:28 Dose: 1 mg Vancomycin IV Pharmacy to Dose (1 ea/ Sodium Chloride) 500 mls @ 250 mls/hr IV X1 PRN; Protocol PRN Reason: Rx to Dose Sodium Chloride () 250 mls @ 15 mls/hr IV .[id number] PRN PRN Reason: SALINE FLUSH Last Admin: 05/25/18 02:20 Dose: 15 mls/hr Cefazolin Sodium 2 gm/ Sodium (Chloride) 110 mls @ 150 mls/hr IV Q8 VINAY Last Admin: 05/26/18 14:25 Dose: 150 mls/hr Magnesium Hydroxide (Milk Of Magnesia) 30 ml PO DAILY PRN PRN PRN Reason: Constipation Oxycodone HCl (Oxyir) 10 mg PO Q4H PRN PRN PRN Reason: SEVERE PAIN (6-10/10) Last Admin: 05/25/18 02:24 Dose: 10 mg Sodium Chloride () 5 - 15 ml IV UD PRN PRN Reason: SALINE FLUSH Last Admin: 05/26/18 14:25 Dose: 10 ml Medical Necessity - Tobacco Use Smoking Status: Current every day smoker Tobacco Use: Cigarettes Assessment/Plan All Active Problems Necrotizing soft tissue infection (Acute) Abscess of right hand including fingers (Acute) Suppurative tenosynovitis (Acute) Tenosynovitis of right hand (Acute) Puncture wound of right ring finger without foreign body without damage to nail (Acute) Cellulitis of right hand (Acute) 70-year-old male admitted with a complaint of swelling of the right hand. 1. Cellulitis of the right hand s/p incision and drainage of right hand * had extensive pus, per plastic surgery. * will need prolonged course of IV antibiotics;wound cultured Staph aureus. was negative for MRSA * will stop vancomycin and start IV cefazolin * ID on ba; will need prolonged course of IV antibiotics * leucocytosis has resolved. * to be on IV cefazolin till June 20 for a total of 4 weeks. * will need follow up with ID and plastic surgery upon discharge. * 2. History of nicotine dependence: Smokes at least 1 pack daily. Counseled to quit. Nicotine patch 21 mg daily. DVT prophylaxis: lovenox Disposition: * for likely dc tomorrow; home health can start giving IV antibiotics to patient from tuesday. * he will therefore have to stay in hospital till tomorrow to receive tomorrow's course of antibiotics. Code Visit Inpatient E&M: 83127 Subs Hosp L2
[2018-05-26 15:06] VITALS: BP 133/76; PULSE 57; RESP 18; TEMP 36.7; O2SAT 98
--- NOTE | 2018-05-26 18:19 | NURSING ---
Aware of Vital Signs taken around 1500 today by Kori Pichardo RN.
[2018-05-26 20:56] VITALS: BP 147/90; PULSE 78; RESP 16; TEMP 36.7; O2SAT 98
[2018-05-26] MEDS: 0.9% NaCl IVPB Med Flush (250 mL) 15 ML IV (21:50)
[2018-05-27 02:50] VITALS: BP 125/73; PULSE 53; RESP 16; TEMP 36.4; O2SAT 96
[2018-05-27] MEDS: Cefazolin 2 GM in 0.9% Normal Saline 100 ML IV ×3 (05:29→22:15)
[2018-05-27 07:23] LABS: Absolute Lymphocyte Count 1.39 X10^3/ul (0.83-4.51); Absolute Neutrophil Count 5.4 X10^3/uL (2.0-7.7); Basophil# 0.03 X10^3/uL; Basophil% 0.4 % (0-1); Eosinophil# 0.57 X10^3/uL; Eosinophils% 6.9 % (0-5); Hematocrit 44.7 % (40-54); Hemoglobin 15.2 g/dl (13.0-16.5); Lymphocyte # 1.39 X10^3/ul (4.0); Lymphocyte % 16.8 % (19-41); Mean Corpuscular Volume 88.3 fL (80-94); Mean Platelet Vol. 12.5 fl (6.2-12.0); Monocyte# 0.89 X10^3/uL; Monocyte% 10.7 % (0-10); Neutrophil % 65.1 % (47-70); Platelet Count 199 K/mm3 (150-450); RBC Distribution Width CV 13.6 % (11.6-14.6); RBC Distribution Width SD 43.7 fl (35.1-43.9); Red Blood Count 5.06 M/mm3 (4.6-6.2); White Blood Count 8.3 K/mm3 (4.4-11.0)
[2018-05-27 07:25] LABS: POSITIVE COUNT NO; POSITIVE DIFFERENTIAL NO; POSITIVE MORPHOLOGY NO
[2018-05-27 07:26] LABS: Anion Gap 6 (5-15); BUN 16 mg/dL (7-18); BUN/Creat Ratio 19.8 RATIO (10-20); Calcium,Total 8.8 mg/dL (8.5-10.1); Chloride 112 mmol/L (98-107); Creatinine, Serum 0.81 mg/dL (0.70-1.30); EST Glomerular Filtration Rate 121 mL/min (>60); Est Glom Filt Rate - Afr Amer 147 mL/min (>60); Estimated Creatinine Clearance 132.53 ml/min; Glucose 103 mg/dL (74-106); Potassium 4.4 mmol/L (3.5-5.1); Sodium Level 143 mmol/L (136-145)
[2018-05-27 08:00] VITALS: BP 137/78; PULSE 52; RESP 18; TEMP 36.6; O2SAT 97
[2018-05-27 08:03] VITALS: PULSE 60
--- NOTE | 2018-05-27 08:20 | DCINST_ITS ---
You will use the following diet at home:: Regular Your food should be the consistency of: Regular Discharge Activity: May Not Drive - right hand wound, May not drive while taking narcotic pain medications. Weight Bearing Status: Weight bearing as tolerated Call your doctor if your incision/area has: Continuous Slow Oozing, Sudden Increased Bleeding, Increased Pain/ Swelling, Increased Redness Call your doctor if you observe: Fever of 101 or Higher, Shortness of breath, Fainting spells, Increased palpitations (irregular heartbeat) Allergies/Adverse Reactions: Allergies morphine Allergy (Verified 05/23/18 10:48) hallucinations Medications to take at Discharge Cefazolin 2 gm IV Q8 vial 05/28/18 Gauze Bandage [Gauze Pads] 2 ea TP .QDAILY #60 bandage 05/28/18 Oxycodone HCl/Acetaminophen [Percocet 5/325] 1 tab PO Q4H PRN PRN 7 Days #40 tab 05/28/18 Silver/Hydrocolloid Dressing [Aquacel-Ag W-Hydrofiber Dress] 1 ea TP .QDAILY #30 bandage 05/28/18 The following prescriptions were given: Oxycodone HCl/Acetaminophen [Percocet 5/325] 1 tab PO Q4H PRN PRN 7 Days #40 tab PRN Reason: Pain Gauze Bandage [Gauze Pads] 2 ea TP .QDAILY #60 bandage Silver/Hydrocolloid Dressing [Aquacel-Ag W-Hydrofiber Dress] 1 ea TP .QDAILY #30 bandage Primary Care Physician: Care Physician,No Primary [Primary Care Provider] - Please follow up with your Primary Care Physician in: in 2weeks Test Results: Test results from this visit will be discussed in further detail at your follow- up appointment, if applicable. Please Follow Up With: Nnamdi Mukherjee MD When: in 1 week Please Follow Up With: Jarrett Balderas MD When: in 2 weeks for IV cefazolin
--- NOTE | 2018-05-27 08:21 | DS.PCM_ITS ---
Discharge Date and Diagnosis Date of Admission: 05/23/18 Date of Discharge: 05/28/18 - Secondary Discharge Diagnosis Chronic Problems Smoker (Chronic) Personal history of Methicillin resistant Staphylococcus aureus infection (Chronic) Hospital Course and Treatment Summary of Care Provided: The patient is a 27 year old M was admitted with a complaint of swelling, pain and infection of the right hand. 1. Puncture necrotizing wound abscess of right hand with associated tenosynovitis with extensor suppurative tenosynovitis of right hand, at the MP joint of ring finger: Patient had extensive excisional debridement of wound with drainage. Surgery was on 05/24/2018. Wound culture shows MSSA. Patient was initially treated with vancomycin which was changed to IV cefazolin. Leukocytosis resolved. Need prolonged IV cefazolin until June 20 for a total of 4 weeks. Currently on IV cefazolin. Seen by ID. Discharge medication reconciliation done. 2. History of nicotine dependence: Smokes at least 1 pack daily. Counseled to quit. Nicotine patch 21 mg daily. DVT prophylaxis: lovenox Discharge medication reconciliation done. Discharge follow-up instructions completed. Discharge process discussed with the patient and all questions were answered to patient's satisfaction. Prescription for antibiotic already given by ID. Hooks, dressing material prescription given by Dr. Mukherjee. Follow-up problems sleeping 1 week. Total time spent, exact 35 minutes on discharge meds reconciliation, examination, review of imaging and blood test and discussion with the patient on follow-up instructions. Subjective: Seen and examined. Discussed with Dr. Mukherjee. No fever or chills. - Physical Exam General: Alert, Oriented x3, Cooperative HEENT: Atraumatic, PERRLA, EOMI, Normocephalic Neck: Supple, No JVD, Negative Carotid Bruits Lungs: Clear to auscultation, Normal air movement, No rhonchi, No wheeze, No rales Cardiovascular: Regular rate, No murmurs Abdomen: Bowel Sounds Present, Soft, Non Tender, Non-Distended Extremities: No edema, Capillary Refill Less than 3 Seconds Skin: Ulcer/ Wound - Surgical debridement of right hand. Dressing change by Dr. Mukherjee. Musculoskeletal: No Tenderness to Palpation of Joints or Extremities Neurological: Cranial nerves II-XII grossly intact Psych/Mental Status: Normal Affect, Appropriate Vital Signs Temp Pulse Resp BP Pulse Ox 97.8 F 60 18 137/78 H 97 05/27/18 08:00 05/27/18 08:03 05/27/18 08:00 05/27/18 08:00 05/27/18 08:00 Oxygen Flow Rate (L/min) 2 Oxygen Delivery Method Room Air Weight: 212 lb Body Mass Index (BMI) 32.2 Intake and Output for Last 24 Hours 05/25/18 05/26/18 05/27/18 23:59 23:59 23:59 Intake Total 5403 / 5403 3689 / 3689 86 / 86 Balance 5403 / 5403 3689 / 3689 86 / 86 Microbiology Past 72 Hours 05/24/18 14:49 Gram Stain - Final Tissue - Finger Wound Culture - Preliminary Staphylococcus aureus Anaerobic Culture - Final No anaerobic bacteria isolated. Laboratory Tests Past 24 Hrs 05/27/18 05/27/18 06:45 06:45 WBC 8.3 RBC 5.06 Hgb 15.2 Hct 44.7 MCV 88.3 MCH 30.0 MCHC 34.0 RDW 13.6 RDW Differential 43.7 Plt Count 199 MPV 12.5 H Immature Gran % (Auto) 0.100 Neut % (Auto) 65.1 Lymph % (Auto) 16.8 L [place] % (Auto) 10.7 H Eos % (Auto) 6.9 H Baso % (Auto) 0.4 Absolute Neuts (auto) 5.4 Absolute Lymphs (auto) 1.39 Total Counted Not Reportable Sodium 143 Potassium 4.4 Chloride 112 H Carbon Dioxide 25.0 Anion Gap 6 BUN 16 Creatinine 0.81 Estim Creat Clear Calc 132.53 Est GFR (MDRD) Af Amer 147 Est GFR (MDRD) Non-Af 121 BUN/Creatinine Ratio 19.8 Glucose 103 Calcium 8.8 Home Medications: Medications to take at Discharge Cefazolin 2 gm IV Q8 vial 05/28/18 Gauze Bandage [Gauze Pads] 2 ea TP .QDAILY #60 bandage 05/28/18 Oxycodone HCl/Acetaminophen [Percocet 5/325] 1 tab PO TID PRN PRN 7 Days #20 tab 05/28/18 Silver/Hydrocolloid Dressing [Aquacel-Ag W-Hydrofiber Dress] 1 ea TP .QDAILY 30 Days #10 bandage 05/28/18 Following Prescrptions Were Given to Patient: Gauze Bandage [Gauze Pads] 2 ea TP .QDAILY #60 bandage Oxycodone HCl/Acetaminophen [Percocet 5/325] 1 tab PO TID PRN PRN 7 Days #20 tab PRN Reason: Pain Silver/Hydrocolloid Dressing [Aquacel-Ag W-Hydrofiber Dress] 1 ea TP .QDAILY 30 Days #10 bandage Primary Care Physician: Care Physician,No Primary [Primary Care Provider] - Medical Necessity - Tobacco Use Smoking Status: Current every day smoker Tobacco Use: Cigarettes Meaningful Use Info Meaningful Use Diagnoses (Choose all that apply): None applicable Code Visit Inpatient E&M: 08673 Disch Hosp
--- NOTE | 2018-05-27 09:12 | CASEMGMT ---
Addendum entered by Asher Suárez 05/27/18 14:11: Addendum to note below- PITER MCDOWELL had spoken with PITER Clark for [facility]. Start of care for IV antibiotic will be Tuesday05/28/18 around 2 pm. Original Note: Addendum entered by Asher Suárez 05/27/18 09:56: Call received from Rossana @ [facility]. They will process case. Plan is for delivery to home between 4-5 pm. Cost will be $2.60/day for medication and $18.00/day for supplies. Pt updated on cost and delivery plan for IV antibiotics. Jamshid GARZAN PITER ACM Original Note: PITER MCDOWELL Note: Final cultures results and sensitivities reviewed via phone with Dr. Lake. Antibiotic on dc to be Cefazolin 2 gm IV Q 8 hrs. -New information faxed to [facility] including pt may be giving own IV antibiotic and may need adaptive for this. Also need delivery today. Call to [facility] [employer] physician liaison to request call back -PITER MCDOWELL Spoke with pt. Informed him that we will be trying to set up [facility] delivery for this afternoon and someone would need to be home to accept delivery. Pt will work on this. Also recommended again that pt may need someone @ home to learn how to give IV antibiotic. DC PLAN: Anticipate Home nalini am after am dose of IV antibiotic and Home Health will plan for start of care @ 2 pm tuesday.
[2018-05-27] MEDS: Enoxaparin 40 MG/0.4 ML Syringe SC (09:23)
[2018-05-27] MEDS: 0.9% NaCl Peripheral Flush Adult/Peds IV ×2 (10:23→13:26)
[2018-05-27] MEDS: 0.9% NaCl IVPB Med Flush (250 mL) 15 ML IV (13:25)
--- NOTE | 2018-05-27 14:05 | PN_ITS ---
Subjective: Patient discharge was canceled as the patient home health service not been set up. Patient is supposed to be discharged on IV antibiotics Ancef. Vitals/I&O's: Vital Signs Temp Pulse Resp BP Pulse Ox 97.8 F 60 18 137/78 H 97 05/27/18 08:00 05/27/18 08:03 05/27/18 08:00 05/27/18 08:00 05/27/18 08:00 Oxygen Flow Rate (L/min) 2 Oxygen Delivery Method Room Air Weight: 212 lb Body Mass Index (BMI) 32.2 Intake and Output for Last 24 Hours 05/25/18 05/26/18 05/27/18 23:59 23:59 23:59 Intake Total 5403 / 5403 3689 / 3689 86 / 86 Balance 5403 / 5403 3689 / 3689 86 General: Alert, Oriented x3, Cooperative HEENT: Atraumatic, PERRLA, EOMI, Normocephalic Neck: Supple, No JVD, Negative Carotid Bruits Lungs: Clear to auscultation, Normal air movement, No rhonchi, No wheeze, No rales Cardiovascular: Regular rate, Regular Rhythm, Normal S1, No murmurs Abdomen: Bowel Sounds Present, Soft, Non Tender, Non-Distended Extremities: No edema, Capillary Refill Less than 3 Seconds Skin: Ulcer/ Wound - Surgical wound on the dorsal aspect of hand. Wound has not been closed. packing changed Musculoskeletal: No Tenderness to Palpation of Joints or Extremities Lymphatic: No Cervical, Supraclavicular, or Inguinal Adenopathy Neurological: Cranial nerves II-XII grossly intact, Deep Tendon Reflexes 2+/4 and Symmetrical, Neuro grossly intact Psych/Mental Status: Normal Affect, Appropriate Microbiology Past 72 Hours 05/24/18 14:49 Tissue - Finger Gram Stain - Final 05/24/18 14:49 Tissue - Finger Wound Culture - Final Staphylococcus aureus 05/24/18 14:49 Tissue - Finger Anaerobic Culture - Final No anaerobic bacteria isolated. Laboratory Results 05/27/18 06:45: WBC 8.3, RBC 5.06, Hgb 15.2, Hct 44.7, MCV 88.3, MCH 30.0, MCHC 34.0, RDW 13.6, RDW Differential 43.7, Plt Count 199, MPV 12.5 H, Immature Gran % (Auto) 0.100, Neut % (Auto) 65.1, Lymph % (Auto) 16.8 L, [place] % (Auto) 10.7 H, Eos % (Auto) 6.9 H, Baso % (Auto) 0.4, Absolute Neuts (auto) 5.4, Absolute Lymphs (auto) 1.39, Total Counted Not Reportable 05/27/18 06:45: Sodium 143, Potassium 4.4, Chloride 112 H, Carbon Dioxide 25.0, Anion Gap 6, BUN 16, Creatinine 0.81, Estim Creat Clear Calc 132.53, Est GFR (MDRD) Af Amer 147, Est GFR (MDRD) Non-Af 121, BUN/Creatinine Ratio 19.8, Glucose 103, Calcium 8.8 Current Medications Acetaminophen (Tylenol) 650 mg PO Q6H PRN PRN PRN Reason: Mild Pain (1-3)/Temp > 100.7 F Last Admin: 05/24/18 18:21 Dose: 650 mg Enoxaparin Sodium (Lovenox) 40 mg SC DAILY@1000 VINAY Last Admin: 05/27/18 09:23 Dose: 40 mg Hydromorphone HCl (Dilaudid Inj) 1 mg IV Q3H PRN PRN PRN Reason: SEVERE PAIN (6-1010) Last Admin: 05/25/18 11:28 Dose: 1 mg Sodium Chloride () 250 mls @ 15 mls/hr IV .[id number] PRN PRN Reason: SALINE FLUSH Last Admin: 05/27/18 13:25 Dose: 15 mls/hr Cefazolin Sodium 2 gm/ Sodium (Chloride) 110 mls @ 150 mls/hr IV Q8 VINAY Last Admin: 05/27/18 13:26 Dose: 150 mls/hr Magnesium Hydroxide (Milk Of Magnesia) 30 ml PO DAILY PRN PRN PRN Reason: Constipation Oxycodone HCl (Oxyir) 10 mg PO Q4H PRN PRN PRN Reason: SEVERE PAIN (6-10/10) Last Admin: 05/25/18 02:24 Dose: 10 mg Sodium Chloride () 5 - 15 ml IV UD PRN PRN Reason: SALINE FLUSH Last Admin: 05/27/18 13:26 Dose: 10 ml Medical Necessity - Tobacco Use Smoking Status: Current every day smoker Tobacco Use: Cigarettes Assessment/Plan All Active Problems Necrotizing soft tissue infection (Acute) Abscess of right hand including fingers (Acute) Suppurative tenosynovitis (Acute) Tenosynovitis of right hand (Acute) Puncture wound of right ring finger without foreign body without damage to nail (Acute) Cellulitis of right hand (Acute) 70-year-old male admitted with a complaint of swelling of the right hand. 1. Puncture necrotizing wound abscess of right hand with associated tenosynovitis with extensor superlatives tenosynovitis of right hand at the MP joint of ring finger: Patient had extensive excisional debridement of wound with drainage. Surgery was on 05/24/2018. Wound culture shows MSSA. Patient was initially treated with vancomycin which changed to IV cefazolin. Leukocytosis resolved. Need prolonged IV cefazolin until June 20 for a total of 4 weeks. Currently on IV cefazolin. Seen by ID. 2. History of nicotine dependence: Smokes at least 1 pack daily. Counseled to quit. Nicotine patch 21 mg daily. DVT prophylaxis: lovenox Active Medications Acetaminophen (Tylenol) 650 mg PO Q6H PRN PRN PRN Reason: Mild Pain (1-3)/Temp > 100.7 F Last Admin: 05/24/18 18:21 Dose: 650 mg Enoxaparin Sodium (Lovenox) 40 mg SC DAILY@1000 VINAY Last Admin: 05/27/18 09:23 Dose: 40 mg Hydromorphone HCl (Dilaudid Inj) 1 mg IV Q3H PRN PRN PRN Reason: SEVERE PAIN (6-10/10) Last Admin: 05/25/18 11:28 Dose: 1 mg Sodium Chloride () 250 mls @ 15 mls/hr IV .[id number] PRN PRN Reason: SALINE FLUSH Last Admin: 05/27/18 13:25 Dose: 15 mls/hr Cefazolin Sodium 2 gm/ Sodium (Chloride) 110 mls @ 150 mls/hr IV Q8 VINAY Last Admin: 05/27/18 13:26 Dose: 150 mls/hr Magnesium Hydroxide (Milk Of Magnesia) 30 ml PO DAILY PRN PRN PRN Reason: Constipation Oxycodone HCl (Oxyir) 10 mg PO Q4H PRN PRN PRN Reason: SEVERE PAIN (6-10/10) Last Admin: 05/25/18 02:24 Dose: 10 mg Sodium Chloride () 5 - 15 ml IV UD PRN PRN Reason: SALINE FLUSH Last Admin: 05/27/18 13:26 Dose: 10 ml Microbiology Past 72 Hours 05/24/18 14:49 Tissue - Finger Gram Stain - Final 05/24/18 14:49 Tissue - Finger Wound Culture - Final Staphylococcus aureus 05/24/18 14:49 Tissue - Finger Anaerobic Culture - Final No anaerobic bacteria isolated. Laboratory Results 05/27/18 06:45: WBC 8.3, RBC 5.06, Hgb 15.2, Hct 44.7, MCV 88.3, MCH 30.0, MCHC 34.0, RDW 13.6, RDW Differential 43.7, Plt Count 199, MPV 12.5 H, Immature Gran % (Auto) 0.100, Neut % (Auto) 65.1, Lymph % (Auto) 16.8 L, [place] % (Auto) 10.7 H, Eos % (Auto) 6.9 H, Baso % (Auto) 0.4, Absolute Neuts (auto) 5.4, Absolute Lymphs (auto) 1.39, Total Counted Not Reportable 05/27/18 06:45: Sodium 143, Potassium 4.4, Chloride 112 H, Carbon Dioxide 25.0, Anion Gap 6, BUN 16, Creatinine 0.81, Estim Creat Clear Calc 132.53, Est GFR (MDRD) Af Amer 147, Est GFR (MDRD) Non-Af 121, BUN/Creatinine Ratio 19.8, Glucose 103, Calcium 8.8 Code Visit Inpatient E&M: 60915 Subs Hosp L2
--- NOTE | 2018-05-27 14:06 | NURSING ---
Transferred to 3rd floor, room 321 via bed at this time.
[2018-05-27 14:58] VITALS: BP 127/65; PULSE 53; RESP 18; TEMP 36.9; O2SAT 97
--- NOTE | 2018-05-27 15:40 | PN.SURG_ITS ---
Subjective: Postop #3 Patient is resting comfortably. Tolerated the Silver dressing change well. - Physical Exam General: Alert, Oriented x3 HEENT: PERRLA, EOMI Oral: Moist Mucosa Neck: Supple Abdomen: Soft, Non-Distended Extremities: Edema - resolving right hand., Peripheral Pulses Normal, - - has good range of motion of his fingers and MP joints right hand. He can make a fist. Skin: Ulcer/ Wound - right hand wounds are stable. Minimal bleeding seen. No further evidence of infection. Swelling less. Wounds redressed with Aquacel Silver. He tolerated it well. Neurological: Cranial nerves II-XII grossly intact Psych/Mental Status: Normal Affect, Appropriate Vital Signs Temp Pulse Resp BP Pulse Ox 98.5 F 53 L 18 127/65 H 97 05/27/18 14:58 05/27/18 14:58 05/27/18 14:58 05/27/18 14:58 05/27/18 14:58 Oxygen Flow Rate (L/min) 2 Oxygen Delivery Method Room Air Weight: 212 lb Body Mass Index (BMI) 32.2 Intake and Output for Last 24 Hours 05/25/18 05/26/18 05/27/18 23:59 23:59 23:59 Intake Total 5403 / 5403 3689 / 3689 86 / 86 Balance 5403 / 5403 3689 / 3689 86 / 86 Microbiology Past 72 Hours 05/24/18 14:49 Gram Stain - Final Tissue - Finger Wound Culture - Final Staphylococcus aureus Anaerobic Culture - Final No anaerobic bacteria isolated. Laboratory Tests Past 24 Hrs 05/27/18 05/27/18 06:45 06:45 WBC 8.3 RBC 5.06 Hgb 15.2 Hct 44.7 MCV 88.3 MCH 30.0 MCHC 34.0 RDW 13.6 RDW Differential 43.7 Plt Count 199 MPV 12.5 H Immature Gran % (Auto) 0.100 Neut % (Auto) 65.1 Lymph % (Auto) 16.8 L [place] % (Auto) 10.7 H Eos % (Auto) 6.9 H Baso % (Auto) 0.4 Absolute Neuts (auto) 5.4 Absolute Lymphs (auto) 1.39 Total Counted Not Reportable Sodium 143 Potassium 4.4 Chloride 112 H Carbon Dioxide 25.0 Anion Gap 6 BUN 16 Creatinine 0.81 Estim Creat Clear Calc 132.53 Est GFR (MDRD) Af Amer 147 Est GFR (MDRD) Non-Af 121 BUN/Creatinine Ratio 19.8 Glucose 103 Calcium 8.8 Medical Necessity - Tobacco Use Smoking Status: Current every day smoker Tobacco Use: Cigarettes Assessment/Plan All Active Problems Necrotizing soft tissue infection (Acute) Abscess of right hand including fingers (Acute) Suppurative tenosynovitis (Acute) Tenosynovitis of right hand (Acute) Puncture wound of right ring finger without foreign body without damage to nail (Acute) Cellulitis of right hand (Acute) 1. 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 2. History of MRSA. 3. Extensor suppurative tenosynovitis dorsum right hand at MP joint ring finger. 4. s/p surgical preparation dorsal aspect right ring finger at proximal aspect and dorsum right hand with incision and drainage and excisional debridement puncture wound necrotizing abscess and radical excision suppurative bursa and [place] extensor tendon sheath to ring finger at wrist with extension onto dorsum of hand with extensor suppurative tenosynovectomy and incision and drainage extensor tendon sheath dorsum right hand to ring finger for suppurative tenosynovitis. 5. Smoker. Wound looks clean. Minimal oozing seen. No further clinical evidence of infection. Swelling less. Can passively flex his MP joints. Wound redressed with Aquacel Silver. He tolerated it well. Operative culture shows Staphylococcus aureus. MRSA screen showed MSSA. The Vancomycin has been stopped. Continue Ancef. With the severity of the suppurative tenosynovitis in his dominant right hand, he will need antibiotics for 6 weeks and IV antibiotics for at least 4 weeks. When I see him postop in the office, when adequate healing is noted, can switch to po antibiotics for the remaining time for a total of six weeks. If healing is suboptimal, then he will continue the IV antibiotics at that time. Continue to elevate his right hand to minimize the swelling. Will encourage range of motion exercises to minimize stiffness. Anticipate increased metabolic demands from the infection and from the surgical wounds. Prealbumin was 17.1. Will encourage nutritional supplementation with protein to help the healing process. Anticipate discharge tomorrow once Home Health has been set up. Followup office one week. Encouraged patient to stop smoking as it may have deleterious effects on wound healing.
[2018-05-27 22:14] VITALS: BP 125/65; PULSE 57; RESP 16; TEMP 36.6; O2SAT 96
[2018-05-28 02:30] VITALS: BP 124/60; PULSE 54; RESP 16; TEMP 36.4; O2SAT 97
[2018-05-28] MEDS: Cefazolin 2 GM in 0.9% Normal Saline 100 ML IV (05:37)
[2018-05-28] MEDS: 0.9% NaCl IVPB Med Flush (250 mL) 15 ML IV (05:38)
[2018-05-28 07:39] VITALS: PULSE 58; RESP 18; TEMP 36.5
[2018-05-28 07:40] VITALS: BP 121/70; PULSE 58; RESP 16; TEMP 36.5; O2SAT 98
[2018-05-28] MEDS: 0.9% NaCl Peripheral Flush Adult/Peds IV (09:56)
--- NOTE | 2018-05-28 11:11 | PCM.PN.SRG ---
Subjective: Postop #4 Patient is resting comfortably. Tolerated Silver dressing change well. - Physical Exam General: Alert, Oriented x3 HEENT: PERRLA, EOMI Oral: Moist Mucosa Neck: Supple Abdomen: Soft, Non-Distended Extremities: Edema - resolved right hand., Peripheral Pulses Normal, - - has good range of motion of his fingers and MP joints right hand. Can make a fist. Skin: Ulcer/ Wound - right hand wounds are stable. Minimal bleeding seen. No further evidence of infection. Swelling less. Wounds redressed with Aquacel Silver. He tolerated it well. Neurological: Cranial nerves II-XII grossly intact Psych/Mental Status: Normal Affect, Appropriate Vital Signs Temp Pulse Resp BP Pulse Ox 97.7 F L 58 L 16 121/70 H 98 05/28/18 07:40 05/28/18 07:40 05/28/18 07:40 05/28/18 07:40 05/28/18 07:40 Oxygen Flow Rate (L/min) 2 Oxygen Delivery Method Room Air Weight: 212 lb Body Mass Index (BMI) 32.2 Intake and Output for Last 24 Hours 05/26/18 05/27/18 05/28/18 23:59 23:59 23:59 Intake Total 3689 / 3689 86 / 86 833 / 833 Balance 3689 / 3689 86 / 86 833 / 833 Microbiology Past 72 Hours 05/24/18 14:49 Gram Stain - Final Tissue - Finger Wound Culture - Final Staphylococcus aureus Anaerobic Culture - Final No anaerobic bacteria isolated. Medical Necessity - Tobacco Use Smoking Status: Current every day smoker Tobacco Use: Cigarettes Assessment/Plan All Active Problems Necrotizing soft tissue infection (Acute) Abscess of right hand including fingers (Acute) Suppurative tenosynovitis (Acute) Tenosynovitis of right hand (Acute) Puncture wound of right ring finger without foreign body without damage to nail (Acute) Cellulitis of right hand (Acute) 1. 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 2. History of MRSA. 3. Extensor suppurative tenosynovitis dorsum right hand at MP joint ring finger. 4. s/p surgical preparation dorsal aspect right ring finger at proximal aspect and dorsum right hand with incision and drainage and excisional debridement puncture wound necrotizing abscess and radical excision suppurative bursa and [place] extensor tendon sheath to ring finger at wrist with extension onto dorsum of hand with extensor suppurative tenosynovectomy and incision and drainage extensor tendon sheath dorsum right hand to ring finger for suppurative tenosynovitis. 5. Smoker. Wound looks clean. Minimal oozing seen. No further clinical evidence of infection. Swelling less. Can passively flex his MP joints. Wound redressed with Aquacel Silver. He tolerated it well. Operative culture shows Staphylococcus aureus. MRSA screen showed MSSA. Continue Ancef as an outpatient. With the severity of the suppurative tenosynovitis in his dominant right hand, he will need antibiotics for 6 weeks and IV antibiotics for at least 4 weeks. When I see him postop in the office, when adequate healing is noted, can switch to po antibiotics for the remaining time for a total of six weeks. If healing is suboptimal, then he will continue the IV antibiotics at that time. Continue to elevate his right hand to minimize the swelling. Will encourage range of motion exercises to minimize stiffness. Anticipate increased metabolic demands from the infection and from the surgical wounds. Prealbumin was 17.1. Will encourage nutritional supplementation with protein to help the healing process. Home Health has been arranged so he is being discharged today. Followup office one week. Wrote script for Percocet for pain (20 tabs). Wrote scripts for Aquacel Silver and gauze. Encouraged patient to stop smoking as it may have deleterious effects on wound healing.
== END 2018-05-28 11:39 | disposition home or self-care (01) | DRG 513 ==
LOC: ED 07:59 → MS2 10:20 → MS3 05-27 14:11
PROVIDERS: Surgery; Admitting Provider Student in an Organized Health Care Education/Training Program; Emergency Provider Emergency Medicine; Visit Provider Internal Medicine
PROC: 0JBJ0ZZ Excision of Right Hand Subcutaneous Tissue and Fascia, Open Approach (ICD-10-PCS; principal; 2018-05-24 12:20)
DX: M65.141 Other infective (teno)synovitis, right hand (principal); L02.511 Cutaneous abscess of right hand; L03.113 Cellulitis of right upper limb; B95.61 Methicillin susceptible Staphylococcus aureus infection as the cause of diseases classified elsewhere; F17.210 Nicotine dependence, cigarettes, uncomplicated; Z86.14 Personal history of Methicillin resistant Staphylococcus aureus infection; S61.234A Puncture wound without foreign body of right ring finger without damage to nail, initial encounter; X58.XXXA Exposure to other specified factors, initial encounter
CPT/HCPCS: 36415; 36569; 73130; 80048; 80202; 84134; 85025; 85027; 85652; 86140; 87070; 87075; 87077; 87102; 87186; 87205; 87206; 87640; 88304; 88305; 88312; 93005; 99285; J7040; J7050; A4216; J0295; J2405

== ENCOUNTER 2018-06-12 16:11 | Outpatient (RCR) | payer OTHER, SELFPAY ==
[2018-05-24 11:32] VITALS: BMI 32.2
[2018-05-29 15:43] LABS: Hematocrit 44.1 % (40-54); Hemoglobin 15.2 g/dl (13.0-16.5); Mean Corp Hgb Conc 34.5 g/gl (32-36); Mean Corpuscular Hgb 30.3 pg (27.0-32.0); Mean Corpuscular Volume 87.8 fL (80-94); Mean Platelet Vol. 12.2 fl (6.2-12.0); Platelet Count 216 K/mm3 (150-450); RBC Distribution Width CV 13.4 % (11.6-14.6); Red Blood Count 5.02 M/mm3 (4.6-6.2); White Blood Count 10.6 K/mm3 (4.4-11.0)
[2018-05-29 15:44] LABS: Scan Indicated on CBC? Y/N NO
[2018-05-29 15:52] LABS: Erythrocyte Sedimentation Rate 22 mm/hr (0-15)
[2018-05-29 16:05] LABS: Anion Gap 5 (5-15); BUN 15 mg/dL (7-18); BUN/Creat Ratio 19.5 RATIO (10-20); Calcium,Total 8.9 mg/dL (8.5-10.1); Chloride 107 mmol/L (98-107); Creatinine, Serum 0.77 mg/dL (0.70-1.30); EST Glomerular Filtration Rate 128 mL/min (>60); Est Glom Filt Rate - Afr Amer 155 mL/min (>60); Glucose 76 mg/dL (74-106); Potassium 3.9 mmol/L (3.5-5.1); Sodium Level 141 mmol/L (136-145)
[2018-06-05 16:47] LABS: Hematocrit 45.3 % (40-54); Hemoglobin 15.4 g/dl (13.0-16.5); Mean Corpuscular Hgb 29.3 pg (27.0-32.0); Mean Corpuscular Volume 86.3 fL (80-94); Mean Platelet Vol. 12.5 fl (6.2-12.0); Platelet Count 225 K/mm3 (150-450); RBC Distribution Width CV 13.2 % (11.6-14.6); RBC Distribution Width SD 41.4 fl (35.1-43.9); Red Blood Count 5.25 M/mm3 (4.6-6.2); White Blood Count 12.4 K/mm3 (4.4-11.0)
[2018-06-05 16:49] LABS: Scan Indicated on CBC? Y/N NO
[2018-06-05 17:11] LABS: Anion Gap 5 (5-15); BUN 19 mg/dL (7-18); BUN/Creat Ratio 19.7 RATIO (10-20); Calcium,Total 8.8 mg/dL (8.5-10.1); Chloride 109 mmol/L (98-107); Creatinine, Serum 0.96 mg/dL (0.70-1.30); EST Glomerular Filtration Rate 99 mL/min (>60); Est Glom Filt Rate - Afr Amer 120 mL/min (>60); Glucose 87 mg/dL (74-106); Potassium 4.2 mmol/L (3.5-5.1); Sodium Level 143 mmol/L (136-145)
[2018-06-05 17:12] LABS: Erythrocyte Sedimentation Rate 10 mm/hr (0-15)
[2018-06-12 16:35] LABS: Anion Gap 3 (5-15); BUN 16 mg/dL (7-18); BUN/Creat Ratio 17.1 RATIO (10-20); Calcium,Total 8.9 mg/dL (8.5-10.1); Chloride 106 mmol/L (98-107); Creatinine, Serum 0.93 mg/dL (0.70-1.30); EST Glomerular Filtration Rate 103 mL/min (>60); Est Glom Filt Rate - Afr Amer 124 mL/min (>60); Glucose 82 mg/dL (74-106); Potassium 3.6 mmol/L (3.5-5.1); Sodium Level 140 mmol/L (136-145)
[2018-06-12 16:37] LABS: Hematocrit 43.9 % (40-54); Hemoglobin 15.1 g/dl (13.0-16.5); Mean Corp Hgb Conc 34.4 g/gl (32-36); Mean Corpuscular Volume 87.3 fL (80-94); Mean Platelet Vol. 12.7 fl (6.2-12.0); Platelet Count 187 K/mm3 (150-450); RBC Distribution Width CV 13.7 % (11.6-14.6); RBC Distribution Width SD 43.5 fl (35.1-43.9); Red Blood Count 5.03 M/mm3 (4.6-6.2); White Blood Count 10.8 K/mm3 (4.4-11.0)
[2018-06-12 16:43] LABS: Scan Indicated on CBC? Y/N NO
[2018-06-12 17:16] LABS: Erythrocyte Sedimentation Rate 7 mm/hr (0-15)
== END 2018-06-20 23:59 ==
LOC: HHLAB 16:11
PROVIDERS: Family Provider Internal Medicine Infectious Disease; PCP Internal Medicine Infectious Disease; Referring Provider Surgery; Visit Provider Surgery
DX: L03.113 Cellulitis of right upper limb (principal)
CPT/HCPCS: 80048; 85027; 85652

== ENCOUNTER → 2018-06-19 | Outpatient (CLI) | payer OTHER, SELFPAY ==
[2018-06-08 13:15] VITALS: BMI 32.2
[2018-06-19 15:28] LABS: Anion Gap 7 (5-15); BUN 14 mg/dL (7-18); Calcium,Total 9.3 mg/dL (8.5-10.1); Chloride 105 mmol/L (98-107); Creatinine, Serum 0.78 mg/dL (0.70-1.30); EST Glomerular Filtration Rate 127 mL/min (>60); Est Glom Filt Rate - Afr Amer 153 mL/min (>60); Glucose 78 mg/dL (74-106); Potassium 3.9 mmol/L (3.5-5.1); Sodium Level 140 mmol/L (136-145)
[2018-06-19 15:50] LABS: Hematocrit 44.6 % (40-54); Hemoglobin 15.3 g/dl (13.0-16.5); Mean Corp Hgb Conc 34.3 g/gl (32-36); Mean Corpuscular Hgb 29.9 pg (27.0-32.0); Mean Corpuscular Volume 87.1 fL (80-94); Mean Platelet Vol. 13.2 fl (6.2-12.0); Platelet Count 166 K/mm3 (150-450); RBC Distribution Width CV 13.5 % (11.6-14.6); RBC Distribution Width SD 43.3 fl (35.1-43.9); Red Blood Count 5.12 M/mm3 (4.6-6.2); White Blood Count 9.7 K/mm3 (4.4-11.0)
[2018-06-19 15:56] LABS: Scan Indicated on CBC? Y/N NO
[2018-06-19 16:00] LABS: Erythrocyte Sedimentation Rate 8 mm/hr (0-15)
== END | disposition home or self-care (01) ==
LOC: LABSPEC 14:50
PROVIDERS: Family Provider Internal Medicine Infectious Disease; PCP Internal Medicine Infectious Disease; Referring Provider Surgery; Visit Provider Surgery
DX: L03.113 Cellulitis of right upper limb (principal)
CPT/HCPCS: 80048; 85027; 85652